=== PATIENT | male | born 1925 | race Caucasian/White ===

== ENCOUNTER 2016-10-01 10:59 | Emergency (ER) | payer MEDICARE, BC ==
[2016-10-01 11:15] VITALS: BP 143/72
--- NOTE | 2016-10-01 11:32 | ERNOTE ---
Time Seen by Provider: 10/01/16 11:18 Stated Complaint: BAD COUGH Presenting Symptoms:: cough Source: patient Exam Limitations: no limitations Immunizations: IMMUNIZATION HX Immunizations Up to Date Yes History of Influenza Vaccine Yes Hx Pneumococcal Vaccination Yes Allergies/Adverse Reactions: Allergies oxycodone HCl [From OxyContin] Allergy (Verified 10/01/16 11:16) Penicillins Allergy (Verified 10/01/16 11:16) "didn't work" zolpidem tartrate [From Ambien] Allergy (Verified 10/01/16 11:16) cilostazol Adverse Reaction (Verified 10/01/16 11:16) "heart rate when way fast." colchicine Adverse Reaction (Verified 10/01/16 11:16) celostogol Adverse Reaction (Uncoded 10/01/16 11:16) Home Medications: HOME MEDICATIONS Furosemide [Lasix] 20 mg PO DAILY 07/13/14 [Last Taken 07/20/14] Omeprazole [Prilosec] 40 mg PO DAILY 07/13/14 [Last Taken Unknown] Simvastatin [Zocor] 40 mg PO HS 07/13/14 [Last Taken 07/20/14] Fluticasone Propionate [Flovent Hfa] 1 inh IH BID 10/07/14 [Last Taken Unknown] Ipratropium [place] [Atrovent Hfa] 2 puff IH TID 10/07/14 [Last Taken Unknown] Acetaminophen [Tylenol] 650 mg PO QID PRN #0 tablet 01/18/15 [Last Taken Unknown ] Tamsulosin HCl [Flomax] 0.4 mg PO DAILY@1800 cap.sr.24h 01/18/15 [Last Taken Unknown] Potassium Chloride [Klor-Con 10] 20 meq PO DAILY 07/03/15 [Last Taken Unknown] Atenolol [Tenormin] 50 mg PO BID 07/04/15 [Last Taken Unknown] Theophylline Anhydrous [Gunner-24] 400 mg PO DAILY 07/04/15 [Last Taken Unknown] Doxycycline Hyclate [Vibratab] 100 mg PO BID #20 tablet 10/01/16 [Last Taken Unknown] predniSONE [Prednisone] 3 tab PO DAILY #12 tab 10/01/16 [Last Taken Unknown] - History of Present Ilness Narrative: Patient has had a cough for 2-3 days with yellow phlegm. He has a history of COPD, is on 2l O2 at night only, last exacerbation a year ago, shortness of breath minimally worse than baseline, chronic runny nose, no other new symptoms Severity: moderate Frequency/Possible Cause: Reports: occasional episodes Modifying Factors - Improves: Reports: rest Modifying Factors - Worsens: Reports: activity Associated Symptoms: Reports: cough. Denies: chest pain/soreness Prior Treatment: Denies: recently seen, currently on antibiotics Review of Systems - Review of Systems Constitutional: Absent: recent illness, fever, chills, malaise ENT: Present: nasal drainage. Absent: ear pain, sore throat Respiratory: Present: See HPI Cardiology: Absent: chest pain Gastrointestinal/Abdominal: Absent: nausea, vomiting, diarrhea, abdominal pain Genitourinary: Present: no symptoms reported Musculoskeletal: Absent: muscle pain Skin: Absent: rash Neurological: Absent: headache - Patient's Past Medical History Patient History - Medical: Arthritis, GERD, Hypothyroidism, UTI'S Patient History - Cardiac/Respiratory: Asthma, Bronchitis, COPD Patient History - Cancer: Bladder Patient History - Surgical Procedures: Colonoscopy, T & A, Other Patient History - Other: None - Family History Mother Family History - Medical: , Diabetes Type 2 Family History - Cardiac/Respiratory: Coronary Heart Disease, Myocardial Infarction Father Family History - Medical: Family History - Cardiac/Respiratory: CVA/Stroke - Social History Living Situations: other Abuse History: No History of abuse Psych History: No pertinent hx Does anyone smoke in the home?: No Smoking Status: Former smoker Have you smoked in the past 12 months: No Do you dip or chew tobacco: No Alcohol Use: occasionally Drug Use: none - Immunizations Immunizations Up to Date: Yes Hx Pneumococcal Vaccination: Yes History of Influenza Vaccine: Yes Physical Exam - Physical Exam General Appearance: Present: wd/wn, alert, no apparent distress Eye Exam: Normal inspection: bilateral, PERRL: bilateral Ears, Nose, Throat: Present: normal ENT inspection, normal pharynx Neck: Present: normal inspection. Absent: lymphadenopathy (R), lymphadenopathy (L) Respiratory: Present: no respiratory distress, decreased breath sounds, expiration (prolonged), wheezing - few, clear with cough Cardiovascular/Chest: Present: regular rate, rhythm, no murmur Neurological Exam: Present: alert, oriented, normal mood/affect Skin Exam: Present: normal color, warm/dry ED Progress - Results and Orders Patient's Lab Results:: I have reviewed the patient's lab results. - Vital Signs Patient's Vital Signs:: I have reviewed the patient's vital signs. Vital Signs: Vital Signs 10/01/16 11:02 Temperature 37.3 C Pulse Rate 100 Respiratory 17 Rate Blood Pressure 143/72 O2 Sat by Pulse 92 Oximetry - X-Ray X-Ray #1 X-Ray: chest - chronic changes, no acute Interpretation: Interp. by me - Progress/Reassessment Chief Complaint: Cough Progress Note-Subjective: 10/01/16 12:15 discussed results with patient, will treat for COPD exacerbation Departure - Departure Clinical Impression: Acute exacerbation of COPD with asthma Disposition: Home self-care Condition: Good Instructions: Chronic Obstructive Pulmonary Disease Exacerbation, [id number] Additional Instructions: use your nebulizers and oxygen as needed call your doctor for a follow up appointment Referrals: Champ Mcclure MD [Primary Care Provider] - Prescriptions: Doxycycline Hyclate [Vibratab] 100 mg PO BID #20 tablet predniSONE [Prednisone] 3 tab PO DAILY #12 tab
[2016-10-01 11:48] LABS: Hematocrit 54.2 % (42.0-52.0); Hemoglobin 17.5 gm/dL (13.5-18.0); Mean Cell Volume 91.4 fl (78-100); Mean Corpuscular Hemoglobin 29.5 pg (27-31); Mean Corpuscular Hgb Conc 32.3 g/dl (32-36); Mean Platelet Volume 10.1 fl (6.0-9.5); Neutrophil # 11.9 K/mm3 (1.3-6.0); Neutrophil % 76.9 % (42-75.0); Platelet Count 206 K/mm3 (150-450); Red Blood Count 5.93 M/mm3 (4.7-6.0); Red Cell Distribution Width 14.4 % (11.5-14.0); White Blood Count 15.5 K/mm3 (4.0-10.5)
[2016-10-01 12:02] LABS: Albumin * 3.8 gm/dl (3.4-5.0); Anion Gap 10.2 mmol/L (6.8-13.8); BUN/Creatinine Ratio 16.7 (9.0-21.6); Bilirubin, Total 1.1 mg/dL (0.0-1.1); Ca. Corrected For Albumin 9.5 mg/dL (8.4-10.2); Calcium * 9.7 mg/dL (7.9-10.9); Carbon Dioxide 33.8 mmol/L (24-32.6); Total Protein 7.7 gm/dL (6.2-8.2)
--- OUTSIDE RECORDS SUMMARY | 2016-10-01 12:07 | XMS REPORT | Continuity of Care Document ---
:1925 Author Organization [facility] ([facility]) Address [address] [place] [address] Phone [phone] Care Team Providers Name Role Phone Champ Cagle Primary Care Provider [phone] Source Comments This disclosure is being made pursuant to the Care Everywhere program, applicable federal and state laws, and may not contain all informaitonavailable regarding this patient.[facility] ([facility]) Active Allergies and Adverse Reactions Allergen Noted Date Severity Reactions Comments Cilostazol 03/28/2010 Unknown Current Medications Prescription Sig. Disp. Refills Start Date End Date Status fluticasone (FLOVENT Use 4 Puffs by Active HFA) 110 inhalation every 12 mcg/Actuation hours. inhaler furosemide (LASIX) Take 60 mg by mouth Active 20 mg tablet daily. omeprazole Take 20 mg by mouth Active (PRILOSEC) 20 mg daily. extended release capsule POTASSIUM CHLORIDE Take 10 mEq by mouth at Active (KLOR-CON 10 PO) bedtime. Theophylline 200 mg Take 400 mg by mouth Active Tab daily. simvastatin (ZOCOR) Take 40 mg by mouth Active 40 mg tablet every evening. Terazosin 10 mg Tab Take 1 Tab by mouth at 30 Tab 11 03/29/2010 Active bedtime. Indications: Benign Prostatic Hypertrophy, Hypertension atenolol (TENORMIN) Take 1 Tab by mouth 30 Tab 11 03/29/2010 Active 25 mg tablet daily. Indications: Supraventricular Arrhythmias Active Problems Not on file Social History Tobacco Use Types Packs/Day Years Used Date Former Smoker Comments:Patient quit smoking in 1999 Alcohol Use Drinks/Week oz/Week Comments No Last Filed Vital Signs Vital Sign Reading Time Taken Blood Pressure 124/58 03/29/2010 1:00 PM CDT Pulse 86 03/29/2010 1:00 PM CDT Temperature 36.3 C (97.3 F) 03/29/2010 1:00 PM CDT Respiratory Rate 18 03/29/2010 1:00 PM CDT Height 1.88 m (6' 2") 03/29/2010 12:46 AM CDT Weight 110.2 kg (242 lb 15.2 oz) 03/29/2010 12:46 AM CDT Body Mass Index 31.18 03/29/2010 12:46 AM CDT Oxygen Saturation 1% 03/29/2010 1:00 PM CDT Plan of Care Health Maintenance Due Date Last Done Comments Hepatitis B Vaccine (1 of 3 - Primary Series) 1925 Tdap Vaccine 1938 Td Vaccine 1945 Zoster Vaccine 1987 Pneumococcal Vaccine (1 of 2 - PCV13) 02/19/1992 Lipid Disorder Screening 03/29/2015 03/29/2010 Influenza Vaccine: Seasonal (#1) 02/14/2016 Results from Last 3 Months Not on file
[2016-10-01] MEDS ORDERED: predniSONE 20 MG TABLET PO ONE (12:13)
[2016-10-01] MEDS ORDERED: predniSONE 20 MG TABLET ONE (12:16)
== END 2016-10-01 12:21 | disposition home or self-care (01) ==
LOC: ER 10:59
DX: J44.1 Chronic obstructive pulmonary disease with (acute) exacerbation (principal); J45.909 Unspecified asthma, uncomplicated; K21.9 Gastro-esophageal reflux disease without esophagitis; M19.90 Unspecified osteoarthritis, unspecified site

== ENCOUNTER 2016-10-15 22:58 | Emergency (ER) | payer MEDICARE, BC ==
[2016-10-15] MEDS ORDERED: METHYLPREDNISOLONE SOD SUCC/PF 40 MG/ML VIAL IV ONE (23:26)
[2016-10-15] MEDS ORDERED: METHYLPREDNISOLONE SOD SUCC/PF 40 MG/ML VIAL ONE (23:27)
--- NOTE | 2016-10-15 23:36 | ERNOTE ---
Dyspnea - Date Date of Service: 10/15/16 - General Presenting Symptoms: shortness of breath Time Seen by Provider: 10/15/16 23:14 Source: patient, family - THREE SONS INCLUDING ONE THAT LIVES WITH HIM AND ONE THAT WENT TO THE PCP WITH HIM 2 DAYS AGO. Exam Limitations: no limitations - Immun/Allergies/Home Medications Immunizations: IMMUNIZATION HX Immunizations Up to Date Yes History of Influenza Vaccine Yes Hx Pneumococcal Vaccination Yes Allergies/Adverse Reactions: Allergies oxycodone HCl [From OxyContin] Allergy (Verified 10/01/16 11:16) Penicillins Allergy (Verified 10/01/16 11:16) "didn't work" zolpidem tartrate [From Ambien] Allergy (Verified 10/01/16 11:16) cilostazol Adverse Reaction (Verified 10/01/16 11:16) "heart rate when way fast." colchicine Adverse Reaction (Verified 10/01/16 11:16) celostogol Adverse Reaction (Uncoded 10/01/16 11:16) Home Medications: HOME MEDICATIONS Furosemide [Lasix] 20 mg PO DAILY 07/13/14 [Last Taken 07/20/14] Omeprazole [Prilosec] 20 mg PO BID 07/13/14 [Last Taken Unknown] Simvastatin [Zocor] 40 mg PO HS 07/13/14 [Last Taken 07/20/14] Fluticasone Propionate [Flovent Hfa] 1 inh IH BID 10/07/14 [Last Taken Unknown] Ipratropium [place] [Atrovent Hfa] 2 puff IH TID 10/07/14 [Last Taken Unknown] Acetaminophen [Tylenol] 650 mg PO QID PRN #0 tablet 01/18/15 [Last Taken Unknown ] Tamsulosin HCl [Flomax] 0.4 mg PO DAILY@1800 cap.sr.24h 01/18/15 [Last Taken Unknown] Potassium Chloride [Klor-Con 10] 20 meq PO DAILY 07/03/15 [Last Taken Unknown] Atenolol [Tenormin] 50 mg PO BID 07/04/15 [Last Taken Unknown] Theophylline Anhydrous [Gunner-24] 400 mg PO DAILY 07/04/15 [Last Taken Unknown] Olodaterol HCl [Striverdi Respimat] 1 puff IH BID 10/15/16 [Last Taken Unknown] Levofloxacin [Levaquin] 750 mg PO DAILY #10 tab 10/16/16 [Last Taken Unknown] predniSONE [Prednisone] 3 tab PO DAILY #9 tab 10/16/16 [Last Taken Unknown] - History of Present Illness Narrative: 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 NO HISTORY OF FEVER OR INCREASED COUGH OR KNOWN EXPOSURE. HE USUALLY USES NEBULIZER OF ALBUTEROL TWICED A DAY AND 2 L O2/NC ONLY AT NIGHT BUT SINCE THIS AFTERNOON TOOK EXTRA NEB TX'MENT AND AT 1700 STARTED WEARING HIS O2. ON THE WAY HERE BY EMS HE WAS GIVEN ANOTHER NEB TREATMENT WITH ALBUTEROL AND SAYS HE FEELS GOOD NOW. HIS LAST EXACERBATION WAS 2 WEEKS AGO AND HE HAS 3 DAYS OR STEROIDS AND WAS ON ANTIBIOTICS FOR 10 DAYS. WHEN IN THE OFFICE ON SUNDAY THEY SAID HIS LUNGS WERE CLEAR AND HE HAS NO MEDICATION ADJUSTMENTS. THE SON WHO LIVES WITH HIM SMOKES BUT NOT IN THE HOUSE. 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 Initiating event: Reports: unknown Frequency of episodes: Reports: frequent episodes Modifying Factors - (Improves): Reports: albuterol, oxygen Associated Symptoms-Dyspnea: Reports: other - HE C/O OF ABDOMINAL CRAMPS TRHIS AFTER NOON Prior Treatment: Reports: previous episodes Review of Systems - Review of Systems Constitutional: Present: See HPI EYE: Present: no symptoms reported ENT: Present: no symptoms reported Respiratory: Present: See HPI, shortness of breath Cardiology: Present: no symptoms reported Gastrointestinal/Abdominal: Present: abdominal pain - HE SAYS HE HAS HAD SOME C/ O OF ABDOMINAL FULLNESS AND DISCOMFORT TODAY . NO N & V OR DIARRHEA. NO KNOWN CONSTIPATION. Genitourinary: Present: no symptoms reported Musculoskeletal: Present: no symptoms reported Skin: Present: no symptoms reported Neurological: Present: no symptoms reported Endocrine: Present: no symptoms reported Hematologic/Lymphatic: Present: no symptoms reported Psych: Present: no symptoms reported All Other Systems: All systems neg except as marked - Patient's Past Medical History Patient History - Medical: Arthritis, GERD, Hypothyroidism, UTI'S Patient History - Cardiac/Respiratory: Asthma, Bronchitis, COPD Patient History - Cancer: Bladder Patient History - Surgical Procedures: Colonoscopy, T & A, Other Patient History - Other: None - Family History Mother Family History - Medical: , Diabetes Type 2 Family History - Cardiac/Respiratory: Coronary Heart Disease, Myocardial Infarction Father Family History - Medical: Family History - Cardiac/Respiratory: CVA/Stroke - Social History Living Situations: other Abuse History: No History of abuse Psych History: No pertinent hx Does anyone smoke in the home?: No Smoking Status: Former smoker Have you smoked in the past 12 months: No Alcohol Use: occasionally Drug Use: none - Immunizations Immunizations Up to Date: Yes Hx Pneumococcal Vaccination: Yes History of Influenza Vaccine: Yes Physical Exam - Physical Exam General Appearance: Present: wd/wn, alert, no apparent distress - STATES HE FEELS PDRETTY GOOD RIGHT NOW. Respiratory: Present: no respiratory distress, no accessory muscle use, chest nontender, rales - MILD BILATERAL BASILAR RALES , NO WHEEZES. Cardiovascular/Chest: Present: regular rate, rhythm, no murmur, normal peripheral pulses Peripheral Pulses: N=norm/S=strong/W=weak/B=bound/A=absent: Dorsalis-pedis (R): Normal, Dorsalis-pedis (L): Normal Gastrointestinal/Abdominal: Present: normal bowel sounds, nontender, soft, no organomegaly, distended - PT WITH LARGE OBESE BUT SOFT ABDOMEN. Back Exam: Present: no CVA tenderness, no vertebral tenderness Extremity Exam: Present: normal inspection, no edema Neurological Exam: Present: alert, oriented, normal mood/affect, no motor/ sensory deficits Skin Exam: Present: other - MOUTH IS DRY. ED Progress - Results and Orders Patient's Lab Results:: I have reviewed the patient's lab results. Results and Orders: ELEVATED WBC = 24K WITH LEFT SHIFT. SL. ELEVATED D DIMER, ELEVATED BNP, HYPOXEMIA ON ABG BUT WITH NORMAL PH. - Vital Signs Patient's Vital Signs:: I have reviewed the patient's vital signs. Vital Signs: Vital Signs 10/15/16 23:01 Temperature 37.5 C Pulse Rate 94 Respiratory 12 Rate Blood Pressure 125/56 O2 Sat by Pulse 94 Oximetry - EKG EKG: NSR, RBBB, unchanged from - 11/08/2015, other - SINUS WITH FIRST DEGREE AV BLOCK, SINUS ARRYTHMIA EKG read: Interp. by me - X-Ray X-Ray #1 X-Ray: chest - HYPERINFLATED. COPD NO CHANGE FROM SEPTEMBER CXR. Interpretation: Interp. by me - CT/Ultrasound CT/Ultrasound Narrative: CTA CHEST/ ARGUS = NO PE, RIGHT LOWER LOBE INFILTRATE IS NOT "EXCLUDED". SEE REPORT FOR FURTHER DETAILS. - Progress/Reassessment Chief Complaint: Dyspnea Progress:: Improved - HE REMAINS AFEBRILE AND COMFORTABLE IN THE ER. I DISCUSSED THE RESULTS WITH HIM AND ONE SON. HE DOES NOT WANT TO BE ADMITTED. WE DISCUSSED A PLAN FOR HOME CARE WITH FOLLOW UP WITH PCP Departure Clinical Impression: Acute exacerbation of chronic obstructive pulmonary disease - Departure Disposition: Home Follow Up Needed Condition: Fair Instructions: Chronic Obstructive Pulmonary Disease Exacerbation Additional Instructions: USE YOUR OXYGEN ALL THE TIME FOR THE NEXT TWO DAYS OR UNTIL YOUR DR ADVISES OTHER GARCIA. USE THE ALBUTEROL NEBULIZER EVERY 4 HOURS FOR THE NEXT TWO DAYS. TAKE LEVAQUIN AND PREDNISONE DIRECTED. YOU DO NOT HAVE TO TAKE THE NEXT DOSE UNTIL THIS EVENING. WATCH FOR FEVER OR INCREASED COUGH AND SHORTNESS OF BREATH AND RETURN TO THE ER IF WORSE. CALL YOUR DOCTOR, TELL THEM YOU WERE HERE AND MAKE ARRANGEMENTS FOR RECHECK IN THE NEXT 1-2 DAYS. Prescriptions: Levofloxacin [Levaquin] 750 mg PO DAILY #10 tab predniSONE [Prednisone] 3 tab PO DAILY #9 tab
[2016-10-15 23:42] LABS: Hematocrit 51.9 % (42.0-52.0); Hemoglobin 16.5 gm/dL (13.5-18.0); Mean Cell Volume 91.5 fl (78-100); Mean Corpuscular Hemoglobin 29.1 pg (27-31); Mean Corpuscular Hgb Conc 31.8 g/dl (32-36); Mean Platelet Volume 10.2 fl (6.0-9.5); Platelet Count 188 K/mm3 (150-450); Red Blood Count 5.67 M/mm3 (4.7-6.0); Red Cell Distribution Width 14.2 % (11.5-14.0); White Blood Count 24.2 K/mm3 (4.0-10.5)
[2016-10-15 23:53] LABS: Total Cells Counted 100
[2016-10-16 00:02] LABS: Albumin * 3.4 gm/dl (3.4-5.0); Anion Gap 6.1 mmol/L (6.8-13.8); Bilirubin, Total 1.1 mg/dL (0.0-1.1); Ca. Corrected For Albumin 9.5 mg/dL (8.4-10.2); Calcium * 9.3 mg/dL (7.9-10.9); Carbon Dioxide 36.4 mmol/L (24-32.6); Potassium 4.5 mmol/L (3.4-4.6); Total Protein 7.1 gm/dL (6.2-8.2)
[2016-10-16 00:04] LABS: Troponin I 0.02 ng/ml (0.00-0.10)
[2016-10-16 00:12] LABS: Band 5 % (0-2.0); Lymphocyte 6 % (20-51); Monocyte 5 % (0-9); Neutrophil 84 % (42-75); Neutrophil # 20.3 K/mm3 (1.3-6.0); Platelet Estimate Normal (NORMAL); RBC Morphology Normal (NORMAL)
--- OUTSIDE RECORDS SUMMARY | 2016-10-16 00:27 | XMS REPORT | Continuity of Care Document ---
:1925 Author Organization [facility] ([facility]) Address [address] [place] [address] Phone [phone] Care Team Providers Name Role Phone Champ Cagle Primary Care Provider [phone] Source Comments This disclosure is being made pursuant to the Care Everywhere program, applicable federal and state laws, and may not contain all informaitonavailable regarding this patient.[facility] ([facility]) Active Allergies and Adverse Reactions Allergen Noted [...]
[2016-10-16] MEDS ORDERED: LEVOFLOXACIN/D5W 750 MG/150 ML BAG IV SCH (01:00)
[2016-10-16 03:37] VITALS: BP 117/53
== END 2016-10-16 03:35 | disposition home or self-care (01) ==
LOC: ER 22:58
PROC: 4A033R1 Measurement of Arterial Saturation, Peripheral, Percutaneous Approach (ICD-10-PCS; principal; 2016-10-15)
DX: J44.1 Chronic obstructive pulmonary disease with (acute) exacerbation (principal); I45.10 Unspecified right bundle-branch block; I44.0 Atrioventricular block, first degree; Z87.891 Personal history of nicotine dependence; K21.9 Gastro-esophageal reflux disease without esophagitis

== ENCOUNTER 2016-11-10 09:42 | Inpatient (IN) | payer MEDICARE, BC ==
[2016-11-10] MEDS ORDERED: ALBUTEROL SULFATE/IPRATROPIUM 3 ML NEBU IH ONE ×2 (09:56→09:58)
[2016-11-10] MEDS ORDERED: METHYLPREDNISOLONE SOD SUCC/PF 40 MG/ML VIAL IV ONE (09:58)
[2016-11-10 10:23] LABS: Hematocrit 54.5 % (42.0-52.0); Hemoglobin 16.8 gm/dL (13.5-18.0); Mean Cell Volume 92.5 fl (78-100); Mean Corpuscular Hemoglobin 28.5 pg (27-31); Mean Corpuscular Hgb Conc 30.8 g/dl (32-36); Mean Platelet Volume 10.6 fl (6.0-9.5); Neutrophil # 6.3 K/mm3 (1.3-6.0); Neutrophil % 63.3 % (42-75.0); Platelet Count 207 K/mm3 (150-450); Red Blood Count 5.89 M/mm3 (4.7-6.0); Red Cell Distribution Width 13.7 % (11.5-14.0); White Blood Count 9.9 K/mm3 (4.0-10.5)
[2016-11-10] MEDS ORDERED: METHYLPREDNISOLONE SOD SUCC/PF 40 MG/ML VIAL ONE (10:31)
[2016-11-10 10:47] LABS: Albumin * 3.3 gm/dl (3.4-5.0); Anion Gap 8.8 mmol/L (6.8-13.8); Bilirubin, Total 1.2 mg/dL (0.0-1.1); Ca. Corrected For Albumin 9.7 mg/dL (8.4-10.2); Calcium * 9.5 mg/dL (7.9-10.9); Carbon Dioxide 34.4 mmol/L (24-32.6); Potassium 4.2 mmol/L (3.4-4.6); Total Protein 7.7 gm/dL (6.2-8.2)
[2016-11-10 10:48] LABS: Troponin I 0.077 ng/ml (0.00-0.10)
--- OUTSIDE RECORDS SUMMARY | 2016-11-10 11:18 | XMS REPORT | Continuity of Care Document ---
:1925 Author Organization [facility] ([facility]) Address [address] [place] [address] Phone [phone] Care Team Providers Name Role Phone Champ Cagle Primary Care Provider [phone] Source Comments This disclosure is being made pursuant to the Care Everywhere program, applicable federal and state laws, and may not contain all informaitonavailable regarding this patient.[facility] ([facility]) Active Allergies and Adverse Reactions [...]
[2016-11-10] MEDS ORDERED: FUROSEMIDE 10 MG/ML VIAL IV ONE (11:50)
[2016-11-10] MEDS ORDERED: FUROSEMIDE 10 MG/ML VIAL ONE (11:52)
--- OUTSIDE RECORDS SUMMARY | 2016-11-10 12:07 | XMS REPORT | Continuity of Care Document ---
:1925 Author Organization [facility] ([facility]) Address [address] [place] [address] Phone [phone] Care Team Providers Name Role Phone Champ Cagle Primary Care Provider [phone] Source Comments This disclosure is being made pursuant to the Care Everywhere program, applicable federal and state laws, and may not contain all informaitonavailable regarding this patient.[facility] ([facility]) Active Allergies and Adverse Reactions Allergen [...]
--- NOTE | 2016-11-10 12:08 | ERNOTE ---
Dyspnea - Date Date of Service: 11/10/16 - General Presenting Symptoms: shortness of breath Time Seen by Provider: 11/10/16 09:56 Source: patient Exam Limitations: no limitations - Immun/Allergies/Home Medications Immunizations: IMMUNIZATION HX Immunizations Up to Date Yes History of Influenza Vaccine Yes Hx Pneumococcal Vaccination Yes Allergies/Adverse Reactions: Allergies oxycodone HCl [From OxyContin] Allergy (Verified 11/10/16 10:41) Penicillins Allergy (Verified 11/10/16 10:41) "didn't work" zolpidem tartrate [From Ambien] Allergy (Verified 11/10/16 10:41) cilostazol Adverse Reaction (Verified 11/10/16 10:41) "heart rate when way fast." colchicine Adverse Reaction (Verified 11/10/16 10:41) celostogol Adverse Reaction (Uncoded 10/01/16 11:16) Home Medications: HOME MEDICATIONS Furosemide [Lasix] 20 mg PO DAILY 07/13/14 [Last Taken 07/20/14] Omeprazole [Prilosec] 20 mg PO BID 07/13/14 [Last Taken Unknown] Simvastatin [Zocor] 40 mg PO HS 07/13/14 [Last Taken 07/20/14] Fluticasone Propionate [Flovent Hfa] 1 inh IH BID 10/07/14 [Last Taken Unknown] Ipratropium [place] [Atrovent Hfa] 2 puff IH TID 10/07/14 [Last Taken Unknown] Acetaminophen [Tylenol] 650 mg PO QID PRN #0 tablet 01/18/15 [Last Taken Unknown ] Tamsulosin HCl [Flomax] 0.4 mg PO DAILY@1800 cap.sr.24h 01/18/15 [Last Taken Unknown] Potassium Chloride [Klor-Con 10] 20 meq PO DAILY 07/03/15 [Last Taken Unknown] Atenolol [Tenormin] 50 mg PO BID 07/04/15 [Last Taken Unknown] Theophylline Anhydrous [Gunner-24] 400 mg PO DAILY 07/04/15 [Last Taken Unknown] Olodaterol HCl [Striverdi Respimat] 1 puff IH BID 10/15/16 [Last Taken Unknown] - History of Present Illness Narrative: Patient presents to the ED with SOB. He relates that he has been getting more SOB for the last week. He was on his 2L home O2 and sating in the upper 70s on arrival. He denies CP. He has had some cough but no fever and his sputum has been clear. no hemoptysis or colored sputum. He denies pleuritic pain or acute onset of Sx. He relates it has been a couple of weeks since he has seen his doctor. No specific calf pain or leg swelling. Severity: moderate Initiating event: Reports: unknown Frequency of episodes: Reports: occassional episodes Modifying Factors - (Improves): Reports: nothing Modifying Factors (Worsens): Reports: activity Associated Symptoms-Dyspnea: Reports: cough. Denies: fever/chills, chest pain/ discomfort Prior Treatment: Denies: recently seen Review of Systems - Review of Systems Constitutional: Absent: fever ENT: Present: no symptoms reported Respiratory: Present: shortness of breath, cough Cardiology: Absent: chest pain Gastrointestinal/Abdominal: Absent: abdominal pain Genitourinary: Absent: dysuria Neurological: Absent: weakness All Other Systems: All systems neg except as marked - Patient's Past Medical History Patient History - Medical: Arthritis, GERD, Hypothyroidism, UTI'S Patient History - Cardiac/Respiratory: Asthma, Bronchitis, COPD Patient History - Cancer: Bladder Patient History - Surgical Procedures: Colonoscopy, T & A, Other Patient History - Other: None - Family History Mother Family History - Medical: , Diabetes Type 2 Family History - Cardiac/Respiratory: Coronary Heart Disease, Myocardial Infarction Father Family History - Medical: Family History - Cardiac/Respiratory: CVA/Stroke - Social History Living Situations: other Abuse History: No History of abuse Psych History: No pertinent hx Does anyone smoke in the home?: No Smoking Status: Never smoker Have you smoked in the past 12 months: No Do you dip or chew tobacco: No Alcohol Use: occasionally Drug Use: none - Immunizations Immunizations Up to Date: Yes Hx Pneumococcal Vaccination: Yes History of Influenza Vaccine: Yes Physical Exam - Physical Exam General Appearance: Present: alert, no apparent distress Eye Exam: Normal inspection: bilateral, PERRL: bilateral Ears, Nose, Throat: Present: normal ENT inspection Neck: Present: normal inspection Respiratory: Present: other - Faint wheezes in bases with faint rales in bases. Mild tachypnea. Cardiovascular/Chest: Present: regular rate, rhythm, normal peripheral pulses Gastrointestinal/Abdominal: Present: normal bowel sounds, nontender, nondistended, soft. Absent: tenderness Back Exam: Absent: CVA tenderness (R), CVA tenderness (L) Extremity Exam: Present: other - no calf tenderness Neurological Exam: Present: alert, normal mood/affect, other - no acute unilateral focal motor or sensory deficits. Skin Exam: Absent: skin rash ED Progress - Results and Orders Patient's Lab Results:: I have reviewed the patient's lab results. - Vital Signs Patient's Vital Signs:: I have reviewed the patient's vital signs. Vital Signs: Vital Signs 11/10/16 11/10/16 11/10/16 09:43 10:05 10:38 Temperature 36.8 C 37.9 C H Pulse Rate 89 88 88 Respiratory 18 22 H 18 Rate Blood Pressure 102/84 124/58 113/50 O2 Sat by Pulse 73 L 91 96 Oximetry 11/10/16 11/10/16 11/10/16 10:56 11:28 11:54 Temperature 37.5 C Pulse Rate 84 84 84 Respiratory 15 20 Rate Blood Pressure 113/50 137/61 121/56 O2 Sat by Pulse 93 88 L Oximetry - EKG EKG read: Interp. by me EKG Comments: NSR rate 96. RBBB. Non-specific ST/T wave changes, no clear evidence of STEMI. - X-Ray X-Ray #1 X-Ray: chest Interpretation: Interp. by me X-ray Comments: I reviewed images as well as CXR report from radiology - Progress/Reassessment Chief Complaint: Dyspnea Progress Note-Subjective: 11/10/16 12:07 Discussed with patient. He feels improved. Lungs sound improved. IV solumedrol, DuoNeb and lasix given. D/W Dr Cagle who will admit. Departure Clinical Impression: SOB (shortness of breath), CHF (congestive heart failure), COPD (chronic obstructive pulmonary disease) - Departure Disposition: [facility] Condition: Stable
[2016-11-10] MEDS ORDERED: ACETAMINOPHEN 325 MG TABLET PO PRN (12:32)
[2016-11-10] MEDS: IPRATROPIUM BROMIDE 0.5 MG/2.5 ML VIAL.NEB IH SCH ×2 (13:54→18:16)
[2016-11-10] MEDS ORDERED: FUROSEMIDE 10 MG/ML VIAL IV SCH (14:00)
[2016-11-10] MEDS: ENOXAPARIN SODIUM 40 MG/0.4 ML SYRG SC SCH (14:02)
--- NOTE | 2016-11-10 17:29 | HP ---
Chief Complaint - Chief Complaint Date of Service: 11/10/16 Time of Service: 17:15 Chief Complaint: Dyspnea History of Present Illness: This is an 89 y/o man with known diastolic dysfunction and COPD, who began to have more of a productive cough 4 days ago. His normally clear phlegm began to turn slightly yellow and he lost his appetite. He did not have a fever. He hasn't been eating this week, so he has been losing weight. His last echo was July 2014 and it showed diastolic dysfunction. 8 days ago he went out socially, and was around his great grandchildren, one of whom had a cold. This morning, he woke up feeling as if he couldn't breathe at all, and an albuterol nebulizer treatment helped only minimally. He therefore came to the [facility] ER, where is RA O2 sat was in the 70s. They gave him nebulizer treatments , IV steroids, O2 supplement at a higher rate, IV lasix and IV antibiotics. In the last couple of hours, he has begun to feel better. He has urinated briskly in response to the lasix. - Patient's Past Medical History Patient History - Medical: Arthritis, GERD, Hypothyroidism, Renal Disease, Renal Failure, UTI'S, Other - diastolic dysfunction Patient History - Cardiac/Respiratory: Asthma, Bronchitis, CHF, COPD, Hypertension, Hyperlipidemia, Pneumonia, Home O2 Use Patient History - Cancer: Bladder Patient History - Surgical Procedures: Colonoscopy, T & A, Other Patient History - Other: None - Family History Mother Family History - Medical: , Diabetes Type 2 Family History - Cardiac/Respiratory: Coronary Heart Disease, Myocardial Infarction Father Family History - Medical: Family History - Cardiac/Respiratory: CVA/Stroke - Social History Living Situations: other Abuse History: No History of abuse Psych History: No pertinent hx Does anyone smoke in the home?: No Smoking Status: Never smoker Have you smoked in the past 12 months: No Do you dip or chew tobacco: No Smoking Stop Date: 07/16/96 Patient requests Smoking Cessation Consult: No Initiate information on Smoking Cessation: No Alcohol Use: occasionally Drug Use: none - Immunizations Immunizations Up to Date: Yes Hx Pneumococcal Vaccination: Yes History of Influenza Vaccine: Yes Review Of Systems (GEN) - Review of Systems Generalized/Overall Review: Present: Malaise, Weight loss EENTM: Present: No Symptoms Reported Respiratory: Present: Cough, Shortness of Breath, Wheezing Cardiac: Present: No Symptoms Reported Abdominal: Present: Other - anorexia Genitourinary: Present: No Symptoms Reported Musculoskeletal: Present: No Symptoms Reported Neurological: Present: No Symptoms Reported Skin: Present: No Symptoms Reported Endocrine: Present: No Symptoms Reported Misc: All systems neg except as marked Immunizations: IMMUNIZATION HX Immunizations Up to Date Yes History of Influenza Vaccine Yes Hx Pneumococcal Vaccination Yes Allergies/Adverse Reactions: Allergies Allergy/AdvReac Type Severity Reaction Status Date / Time oxycodone HCl Allergy Severe Other Verified 11/10/16 12:57 [From OxyContin] Penicillins Allergy Unknown Other Verified 11/10/16 12:57 zolpidem tartrate Allergy Unknown Verified 11/10/16 12:57 [From Ambien] colchicine AdvReac Intermediate Other Verified 11/10/16 12:57 prednisone AdvReac Mild Other Verified 11/10/16 12:57 cilostazol AdvReac Verified 11/10/16 12:57 celostogol AdvReac Intermediate Other Uncoded 11/10/16 12:57 Home Medications: HOME MEDICATIONS Furosemide [Lasix] 20 mg PO DAILY 07/13/14 [Last Taken 07/20/14] Omeprazole [Prilosec] 20 mg PO DAILY 07/13/14 [Last Taken Unknown] Simvastatin [Zocor] 40 mg PO HS 07/13/14 [Last Taken 07/20/14] Fluticasone Propionate [Flovent Hfa] 1 inh IH BID 10/07/14 [Last Taken Unknown] Ipratropium [place] [Atrovent Hfa] 2 puff IH TID 10/07/14 [Last Taken Unknown] Acetaminophen [Tylenol] 650 mg PO QID PRN #0 tablet 01/18/15 [Last Taken Unknown ] Potassium Chloride [Klor-Con 10] 20 meq PO DAILY 07/03/15 [Last Taken Unknown] Atenolol [Tenormin] 50 mg PO BID 07/04/15 [Last Taken Unknown] Theophylline Anhydrous [Gunner-24] 400 mg PO DAILY 07/04/15 [Last Taken Unknown] Olodaterol HCl [Striverdi Respimat] 2 puff IH BID 10/15/16 [Last Taken Unknown] Acyclovir [Zovirax] 400 mg PO DAILY 11/10/16 [Last Taken Unknown] Albuterol Sulfate [Albuterol Sulfate 2.5 MG/3 ML] 2.5 mg IH Q4H PRN 11/10/16 [ Last Taken Unknown] Finasteride [Proscar] 5 mg PO DAILY 11/10/16 [Last Taken Unknown] Tamsulosin HCl [Flomax] 0.8 mg PO DAILY 11/10/16 [Last Taken Unknown] Exam - Exam Vital Signs: Vital Signs - Last Taken Selected Entries 11/10/16 11/10/16 11/10/16 09:43 10:05 10:38 Temperature 36.8 C Temperature Temporal Artery Source Scan Pulse Rate 89 Pulse Rhythm Regular Pulse Strength Normal Respiratory 18 Rate Respiratory Normal Depth Respiratory Short of Breath Effort Respiratory Normal Pattern Blood Pressure 102/84 Blood Pressure Sitting Position O2 Sat by Pulse 73 L 91 96 Oximetry Oxygen Delivery Nasal Cannula Nasal Cannula Nasal Cannula Method Oxygen Flow 2 4 4 Rate 11/10/16 11/10/16 11/10/16 10:40 10:56 11:28 Temperature Temperature Source Pulse Rate Pulse Rhythm Pulse Strength Respiratory Rate Respiratory Depth Respiratory Labored Effort Respiratory Pattern Blood Pressure Blood Pressure Position O2 Sat by Pulse 93 88 L Oximetry Oxygen Delivery Nasal Cannula Nasal Cannula Nasal Cannula Method Oxygen Flow 2 2 2 Rate 11/10/16 11/10/16 12:06 14:04 Temperature 36.7 C Temperature Oral Source Pulse Rate 87 91 Pulse Rhythm Pulse Strength Respiratory 22 H Rate Respiratory Depth Respiratory Effort Respiratory Pattern Blood Pressure 139/63 Blood Pressure Supine Position O2 Sat by Pulse 90 Oximetry Oxygen Delivery Nasal Cannula Nasal Cannula Method Oxygen Flow 3 3 Rate Constitutional: Present: Alert, Oriented x3, Cooperative, Well developed, Well nourished, No distress ENT Exam: Present: normal ENT inspection, hearing grossly normal, pharynx normal , TMs normal Eye Exam: bilateral eye: normal inspection, PERRL, EOMI Neck: Present: normal inspection Back Exam: Present: normal inspection Respiratory: Present: lungs clear, no respiratory distress Cardiovascular/Chest: Present: regular rate, rhythm, no edema Abdomen: Present: Normal bowel sounds, soft, nontender, nondistended, no rebound tenderness, no hepatospenomegaly, no masses Extremity: Present: normal range of motion, non-tender, normal inspection, no pedal edema, no calf tenderness Skin Exam: Present: normal color, warm/dry, no cyanosis Neurologic: Present: alert, oriented x 3 Appearance: Present: appropriate appearance, appropriate insight, neat, no memory impairment Eye contact: Present: cooperative, good eye contact, normal speech Thoughts: Present: normal thought pattern Diagnostic Studies: Laboratory Results WBC 9.9 K/mm3 (4.0-10.5) 11/10/16 10:15 RBC 5.89 M/mm3 (4.7-6.0) 11/10/16 10:15 Hgb 16.8 gm/dL (13.5-18.0) 11/10/16 10:15 Hct 54.5 % (42.0-52.0) H 11/10/16 10:15 MCV 92.5 fl (78-100) 11/10/16 10:15 MCH 28.5 pg (27-31) 11/10/16 10:15 MCHC 30.8 g/dl (32-36) L 11/10/16 10:15 RDW 13.7 % (11.5-14.0) 11/10/16 10:15 Plt Count 207 K/mm3 (150-450) 11/10/16 10:15 MPV 10.6 fl (6.0-9.5) H 11/10/16 10:15 Immature Gran % (Auto) 0.30 % (0.001-0.429) 11/10/16 10:15 Immature Gran # (Auto) 0.03 K/mm3 (0.000-0.0310) 11/10/16 10:15 Neutrophils % 63.3 % (42-75.0) 11/10/16 10:15 Lymphocytes % 20.3 % (20-51) 11/10/16 10:15 Monocytes % 14.9 % (0.0-9) H 11/10/16 10:15 Eosinophils % 0.7 % (0.0-3.0) 11/10/16 10:15 Basophils % 0.5 % (0.0-1.0) 11/10/16 10:15 Nucleated RBC % 0.0 k/mm3 (0-1) 11/10/16 10:15 Neutrophils # 6.3 K/mm3 (1.3-6.0) H 11/10/16 10:15 Lymphocytes # 2.0 k/mm3 (1.5-3.5) 11/10/16 10:15 Monocytes # 1.5 k/mm3 (0.0-1.0) H 11/10/16 10:15 Eosinophils # 0.1 k/mm3 (0.0-0.7) 11/10/16 10:15 Absolute Basophils 0.1 k/mm3 (0.0-0.1) 11/10/16 10:15 pCO2 50.5 mmHg (35.0-48.0) H 11/10/16 10:50 pO2 54.2 mmHg (83.0-108.0) L 11/10/16 10:50 HCO3 27.1 mmol/L (21.0-28.0) 11/10/16 10:50 Total CO2 28.7 mmol/L (19.0-24.0) H 11/10/16 10:50 Base Excess 0.6 mmol/L (-2.0-3.0) 11/10/16 10:50 ABG pH 7.35 (7.35-7.45) 11/10/16 10:50 ABG O2 Sat (Measured) 86.2 % (94.0-98.0) L 11/10/16 10:50 Sodium 142 mmol/L (132-142) 11/10/16 10:15 Plasma Sodium 143 mmol/L (130-142) H 11/10/16 10:15 Potassium 4.2 mmol/L (3.4-4.6) 11/10/16 10:15 Chloride 103 mmol/L (97-106) 11/10/16 10:15 Carbon Dioxide 34.4 mmol/L (24-32.6) H 11/10/16 10:15 Anion Gap 8.8 mmol/L (6.8-13.8) 11/10/16 10:15 BUN 18 mg/dL (6-23) 11/10/16 10:15 Creatinine 1.06 mg/dL (0.4-1.4) 11/10/16 10:15 Est GFR (Non-Af Amer) 70 mL/min (60-130) D 11/10/16 10:15 BUN/Creatinine Ratio 17.0 (9.0-21.6) 11/10/16 10:15 Random Glucose 152 mg/dL (70-110) H 11/10/16 10:15 Lactic Acid, Venous 1.6 mmol/L (0.4-1.9) 11/10/16 13:40 Calcium 9.5 mg/dL (7.9-10.9) 11/10/16 10:15 Calcium Adj for Albumin 9.7 mg/dL (8.4-10.2) 11/10/16 10:15 Total Bilirubin 1.2 mg/dL (0.0-1.1) H 11/10/16 10:15 AST 14 U/L (0-48) 11/10/16 10:15 ALT 16 U/L (19-67) L 11/10/16 10:15 Alkaline Phosphatase 104 U/L (50-170) 11/10/16 10:15 Troponin I 0.077 ng/ml (0.00-0.10) 11/10/16 10:15 B-Natriuretic Peptide 2035 pg/mL (5-650) H 11/10/16 10:15 Total Protein 7.7 gm/dL (6.2-8.2) 11/10/16 10:15 Albumin 3.3 gm/dl (3.4-5.0) L 11/10/16 10:15 Assessment/Plan - Narrative Narrative: Repeat lactic acid level. IV steroids. IV antibiotics. IV lasix. Monitor Labs. O2. Monitor weight. Nebulized medicication. Estimated stay of 72 hours. Repeat echo, check stability of heart function. - Assessment/Plan (1) Acute and chronic respiratory failure with hypoxia Problem: Acute (2) Acute asthma Problem: Acute (3) Acute exacerbation of COPD with asthma Problem: Acute (4) Bronchiectasis Problem: Chronic Qualifiers: Bronchiectasis type: uncomplicated Qualified Code(s): J47.9 - Bronchiectasis, uncomplicated (5) Diastolic CHF, chronic Problem: Acute (6) Goiter Problem: Chronic (7) Hypercholesteremia Problem: Chronic (8) Hyperlipidemia Problem: Chronic (9) Hypertension Problem: Chronic Qualifiers: Hypertension type: essential hypertension Qualified Code(s): I10 - Essential (primary) hypertension (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
[2016-11-10] MEDS: BUDESONIDE 0.5 MG/2 ML VIAL.NEB IH SCH (18:20)
[2016-11-10] MEDS: TAMSULOSIN HCL 0.4 MG CAP.SR.24H PO SCH (18:52)
[2016-11-10] MEDS: PANTOPRAZOLE SODIUM 20 MG TABLET.DR PO SCH (20:22)
[2016-11-10] MEDS: METHYLPREDNISOLONE SOD SUCC 30 MG in WATER FOR INJ.,BACTERIOSTATIC 0 ML IV SCH (20:22)
[2016-11-10] MEDS: ATENOLOL 50 MG TABLET PO SCH (20:22)
[2016-11-10] MEDS: OLODATEROL HCL IH SCH (20:22)
[2016-11-10] MEDS: SIMVASTATIN 40 MG TABLET PO SCH (20:22)
[2016-11-10] MEDS: FUROSEMIDE 10 MG/ML VIAL IV SCH (23:48)
[2016-11-11] MEDS: ALBUTEROL SULFATE 2.5 MG/3 ML VIAL.NEB IH PRN ×2 (00:45→13:39)
[2016-11-11 05:26] LABS: Hematocrit 48.8 % (42.0-52.0); Hemoglobin 15.4 gm/dL (13.5-18.0); Mean Cell Volume 91.4 fl (78-100); Mean Corpuscular Hemoglobin 28.8 pg (27-31); Mean Corpuscular Hgb Conc 31.6 g/dl (32-36); Mean Platelet Volume 10.7 fl (6.0-9.5); Neutrophil # 7.4 K/mm3 (1.3-6.0); Neutrophil % 81.4 % (42-75.0); Platelet Count 204 K/mm3 (150-450); Red Blood Count 5.34 M/mm3 (4.7-6.0); Red Cell Distribution Width 13.4 % (11.5-14.0); White Blood Count 9.1 K/mm3 (4.0-10.5)
[2016-11-11 05:36] LABS: Anion Gap 7.6 mmol/L (6.8-13.8); BUN/Creatinine Ratio 18.5 (9.0-21.6); Calcium * 9.3 mg/dL (7.9-10.9); Carbon Dioxide 36.1 mmol/L (24-32.6); Estimated Creat Clear 44.3; Potassium 4.7 mmol/L (3.4-4.6)
[2016-11-11] MEDS: BUDESONIDE 0.5 MG/2 ML VIAL.NEB IH SCH ×2 (06:05→18:24)
[2016-11-11] MEDS: IPRATROPIUM BROMIDE 0.5 MG/2.5 ML VIAL.NEB IH SCH ×3 (06:05→18:24)
[2016-11-11] MEDS: PANTOPRAZOLE SODIUM 20 MG TABLET.DR PO SCH ×2 (06:10→20:28)
[2016-11-11] MEDS ORDERED: TAMSULOSIN HCL 0.4 MG CAP.SR.24H PO SCH (09:00)
[2016-11-11] MEDS ORDERED: THEOPHYLLINE ANHYDROUS 400 MG PO SCH (09:00)
[2016-11-11] MEDS ORDERED: POTASSIUM CHLORIDE 20 MEQ TABLET.SA PO SCH (09:00)
[2016-11-11] MEDS: ACYCLOVIR 200 MG CAPSULE PO SCH (09:36)
[2016-11-11] MEDS: OLODATEROL HCL IH SCH ×3 (09:37→20:27)
[2016-11-11] MEDS: METHYLPREDNISOLONE SOD SUCC 30 MG in WATER FOR INJ.,BACTERIOSTATIC 0 ML IV SCH ×2 (09:37→20:27)
[2016-11-11] MEDS: FINASTERIDE 5 MG TABLET PO SCH (09:37)
[2016-11-11] MEDS: ATENOLOL 50 MG TABLET PO SCH ×2 (09:37→20:28)
[2016-11-11] MEDS: FUROSEMIDE 10 MG/ML VIAL IV SCH ×2 (12:55→23:21)
[2016-11-11] MEDS: ENOXAPARIN SODIUM 40 MG/0.4 ML SYRG SC SCH (12:56)
--- NOTE | 2016-11-11 13:21 | PN ---
Subjective - Date and Time Seen Date: 11/11/16 Time: 13:19 Subjective Narrative: Cough better, sob better, congestion better, now phlegm is clear. Objective - Review of Systems Generalized/Overall Review: Reports: Malaise EENTM: Reports: No Symptoms Reported Respiratory: Reports: Cough Cardiac: Reports: No Symptoms Reported Abdominal: Reports: No Symptoms Reported Genitourinary Symptoms: Reports: No Symptoms Reported Musculoskeletal Complaints: Reports: No Symptoms Reported Neurological: Reports: No Symptoms Reported Skin: Reports: No Symptoms Reported Endocrine: Reports: No Symptoms Reported Misc: All systems neg except as marked - Vitals Vitals: Last Vital Signs Selected Entries 11/11/16 11:23 Temperature 36.8 C Temperature Oral Source Pulse Rate 82 Respiratory 20 Rate Respiratory Normal Depth Blood Pressure 126/64 Blood Pressure Sitting Position O2 Sat by Pulse 94 Oximetry Oxygen Delivery Nasal Cannula Method Oxygen Flow 3 Rate - Abnormal Lab Findings Abnormal Lab Findings: Abnormal Lab Results 11/11/16 11/11/16 Range/Units 05:05 05:05 MCHC 31.6 L (32-36) g/dl MPV 10.7 H (6.0-9.5) fl Immature Gran # (Auto) 0.04 H (0.000-0.0310) K/mm3 Neutrophils % 81.4 H (42-75.0) % Lymphocytes % 12.9 L (20-51) % Neutrophils # 7.4 H (1.3-6.0) K/mm3 Lymphocytes # 1.2 L (1.5-3.5) k/mm3 Potassium 4.7 H (3.4-4.6) mmol/L Carbon Dioxide 36.1 H (24-32.6) mmol/L Est GFR (Non-Af Amer) 58 L (60-130) mL/min Random Glucose 146 H (70-110) mg/dL - Exam Constitutional: Present: Alert, Oriented x3, Cooperative, Well developed, Well nourished, No distress ENT Exam: Present: normal ENT inspection, hard of hearing Neck: Present: normal inspection Respiratory: Present: normal breath sounds, no respiratory distress Cardiovascular/Chest: Present: regular rate, rhythm, no murmur Abdomen: Present: Normal bowel sounds, soft, nontender, nondistended, no rebound tenderness, no hepatospenomegaly, no masses Extremity: Present: normal inspection, no pedal edema Skin Exam: Present: normal color, warm/dry, no cyanosis Neurologic: Present: alert, oriented x 3 Appearance: Present: appropriate appearance, appropriate insight, neat, no memory impairment Eye contact: Present: cooperative, good eye contact, normal speech Thoughts: Present: normal thought pattern Assessment/Plan Plan Narrative: Walk more. Continue IV antibiotics, IV Lasix, IV steroids. Continue breathing treatments. Follow labs. - Problems/Diagnosis (1) Acute and chronic respiratory failure with hypoxia Problem: Acute (2) Acute asthma Problem: Acute (3) Acute exacerbation of COPD with asthma Problem: Acute (4) Bronchiectasis Problem: Chronic Qualifiers: Bronchiectasis type: uncomplicated Qualified Code(s): J47.9 - Bronchiectasis, uncomplicated (5) Diastolic CHF, chronic Problem: Acute (6) Goiter Problem: Chronic (7) Hypercholesteremia Problem: Chronic (8) Hyperlipidemia Problem: Chronic (9) Hypertension Problem: Chronic Qualifiers: Hypertension type: essential hypertension Qualified Code(s): I10 - Essential (primary) hypertension (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
[2016-11-11] MEDS: TAMSULOSIN HCL 0.4 MG CAP.SR.24H PO SCH (17:04)
[2016-11-11] MEDS: NYSTATIN 30 APPL TUBE TP SCH (20:27)
[2016-11-11] MEDS: SIMVASTATIN 40 MG TABLET PO SCH (20:28)
[2016-11-11] MEDS: THEOPHYLLINE ANHYDROUS 200 MG PO SCH (20:28)
[2016-11-12] MEDS: IPRATROPIUM BROMIDE 0.5 MG/2.5 ML VIAL.NEB IH SCH ×3 (05:55→19:49)
[2016-11-12] MEDS: BUDESONIDE 0.5 MG/2 ML VIAL.NEB IH SCH ×2 (05:55→19:47)
[2016-11-12 06:26] LABS: Anion Gap 6.6 mmol/L (6.8-13.8); BUN/Creatinine Ratio 27.3 (9.0-21.6); Calcium * 9.4 mg/dL (7.9-10.9); Carbon Dioxide 39.9 mmol/L (24-32.6); Potassium 4.5 mmol/L (3.4-4.6)
[2016-11-12] MEDS: PANTOPRAZOLE SODIUM 20 MG TABLET.DR PO SCH ×2 (07:15→20:10)
[2016-11-12] MEDS: METHYLPREDNISOLONE SOD SUCC 30 MG in WATER FOR INJ.,BACTERIOSTATIC 0 ML IV SCH ×2 (09:52→20:10)
[2016-11-12] MEDS: OLODATEROL HCL IH SCH ×2 (09:53→20:10)
[2016-11-12] MEDS: ACYCLOVIR 200 MG CAPSULE PO SCH (09:53)
[2016-11-12] MEDS: ATENOLOL 50 MG TABLET PO SCH ×2 (09:53→20:11)
[2016-11-12] MEDS: FINASTERIDE 5 MG TABLET PO SCH (09:53)
[2016-11-12] MEDS: POTASSIUM CHLORIDE 10 MEQ TABLET.SA PO SCH (09:53)
[2016-11-12] MEDS: NYSTATIN 30 APPL TUBE TP SCH ×2 (09:53→20:09)
[2016-11-12] MEDS ORDERED: MAGNESIUM HYDROXIDE 30 ML UDC PO STA (11:32)
[2016-11-12] MEDS: FUROSEMIDE 10 MG/ML VIAL IV SCH ×2 (11:38→22:53)
[2016-11-12] MEDS: ENOXAPARIN SODIUM 40 MG/0.4 ML SYRG SC SCH (11:47)
[2016-11-12] MEDS: ALBUTEROL SULFATE 2.5 MG/3 ML VIAL.NEB IH PRN (12:43)
--- NOTE | 2016-11-12 13:07 | PN ---
Subjective - Date and Time Seen Date: 11/12/16 Time: 13:04 Subjective Narrative: Cough better, sob better, congestion better, phlegm remains clear, a little constipated. Objective - Review of Systems Generalized/Overall Review: Reports: No Symptoms Reported EENTM: Reports: No Symptoms Reported Respiratory: Reports: Cough Cardiac: Reports: No Symptoms Reported Abdominal: Reports: Constipation Genitourinary Symptoms: Reports: No Symptoms Reported Musculoskeletal Complaints: Reports: No Symptoms Reported Neurological: Reports: No Symptoms Reported Skin: Reports: No Symptoms Reported Endocrine: Reports: No Symptoms Reported Misc: All systems neg except as marked - Vitals Vitals: Last Vital Signs Selected Entries 11/12/16 11:11 Temperature 36.7 C Temperature Oral Source Pulse Rate 82 Respiratory 20 Rate Blood Pressure 134/62 Blood Pressure Supine Position O2 Sat by Pulse 92 Oximetry Oxygen Delivery Room Air Method Oxygen Flow 0 Rate - Abnormal Lab Findings Abnormal Lab Findings: Abnormal Lab Results 11/12/16 Range/Units 05:00 Carbon Dioxide 39.9 H (24-32.6) mmol/L Anion Gap 6.6 L (6.8-13.8) mmol/L BUN 30 H (6-23) mg/dL BUN/Creatinine Ratio 27.3 H (9.0-21.6) Random Glucose 136 H (70-110) mg/dL - Exam Constitutional: Present: Alert, Oriented x3, Cooperative, Well developed, Well nourished, No distress ENT Exam: Present: normal ENT inspection, hard of hearing Neck: Present: normal inspection Respiratory: Present: normal breath sounds, no respiratory distress Cardiovascular/Chest: Present: regular rate, rhythm, no murmur Abdomen: Present: Normal bowel sounds, soft, nontender, nondistended, no rebound tenderness, no hepatospenomegaly, no masses Extremity: Present: normal inspection, no pedal edema Skin Exam: Present: normal color, warm/dry, no cyanosis Neurologic: Present: alert, oriented x 3 Appearance: Present: appropriate appearance, appropriate insight, neat Eye contact: Present: cooperative, good eye contact, normal speech Thoughts: Present: normal thought pattern Assessment/Plan Plan Narrative: Milk of magnesia today. IV antibiotics, IV Lasix, IV steroids, nebulized medications. Probably home tomorrow. - Problems/Diagnosis (1) Acute and chronic respiratory failure with hypoxia Problem: Acute (2) Acute asthma Problem: Acute (3) Acute exacerbation of COPD with asthma Problem: Acute (4) Bronchiectasis Problem: Chronic Qualifiers: Bronchiectasis type: uncomplicated Qualified Code(s): J47.9 - Bronchiectasis, uncomplicated (5) Diastolic CHF, chronic Problem: Acute (6) Goiter Problem: Chronic (7) Hypercholesteremia Problem: Chronic (8) Hyperlipidemia Problem: Chronic (9) Hypertension Problem: Chronic Qualifiers: Hypertension type: essential hypertension Qualified Code(s): I10 - Essential (primary) hypertension (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
[2016-11-12] MEDS: TAMSULOSIN HCL 0.4 MG CAP.SR.24H PO SCH (18:13)
[2016-11-12] MEDS: THEOPHYLLINE ANHYDROUS 200 MG PO SCH (20:10)
[2016-11-12] MEDS: SIMVASTATIN 40 MG TABLET PO SCH (20:11)
[2016-11-13] MEDS: IPRATROPIUM BROMIDE 0.5 MG/2.5 ML VIAL.NEB IH SCH (06:06)
[2016-11-13] MEDS: BUDESONIDE 0.5 MG/2 ML VIAL.NEB IH SCH (06:06)
[2016-11-13] MEDS: PANTOPRAZOLE SODIUM 20 MG TABLET.DR PO SCH (06:16)
[2016-11-13 07:02] VITALS: BP 115/70
--- NOTE | 2016-11-13 08:01 | DS ---
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 Now seems almost back to baseline. 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 Constipation relieved yesterday with MOM. Asked about eventually living at the [facility] in [place]. Procedures Performed: none Discharge Disposition: Home self care Disposition: Home self-care Condition: Stable Discharge Activity: Activity as tolerated Discharge Diet: Low salt Problem Oriented Discharge Instructions to Patient/Family: Chronic Obstructive Pulmonary Disease Exacerbation, [id number], CHF Patient Instructions, Heart Failure, [id number] Additional Patient Instructions (free text): O2 continuous 2 Liters per minute nasal canula Followup with Dr. Cagle 1 week. Prescriptions (Any new or edited meds): Cefuroxime Axetil [Cefuroxime] 500 mg PO BID #20 tablet Nystatin [Mycostatin Cream] 1 appl TP BID #1 tube predniSONE [Prednisone] 3 tab PO BID #60 tab Complete Home Medications List: Complete Home Medication List: Furosemide [Lasix] 20 mg PO DAILY 07/13/14 Omeprazole [Prilosec] 20 mg PO DAILY 07/13/14 Simvastatin [Zocor] 40 mg PO HS 07/13/14 Fluticasone Propionate [Flovent Hfa] 1 inh IH BID 10/07/14 Ipratropium [place] [Atrovent Hfa] 2 puff IH TID 10/07/14 Acetaminophen [Tylenol] 650 mg PO QID PRN #0 tablet 01/18/15 Potassium Chloride [Klor-Con 10] 20 meq PO DAILY 07/03/15 Atenolol [Tenormin] 50 mg PO BID 07/04/15 Theophylline Anhydrous [Gunner-24] 400 mg PO DAILY 07/04/15 Olodaterol HCl [Striverdi Respimat] 2 puff IH BID 10/15/16 Acyclovir [Zovirax] 400 mg PO DAILY 11/10/16 Albuterol Sulfate [Albuterol Sulfate 2.5 MG/3 ML] 2.5 mg IH Q4H PRN 11/10/16 Finasteride [Proscar] 5 mg PO DAILY 11/10/16 Tamsulosin HCl [Flomax] 0.8 mg PO DAILY 11/10/16 Cefuroxime Axetil [Cefuroxime] 500 mg PO BID #20 tablet 11/13/16 Nystatin [Mycostatin Cream] 1 appl TP BID #1 tube 11/13/16 predniSONE [Prednisone] 3 tab PO BID #60 tab 11/13/16
[2016-11-13] MEDS: METHYLPREDNISOLONE SOD SUCC 30 MG in WATER FOR INJ.,BACTERIOSTATIC 0 ML IV SCH (09:23)
[2016-11-13] MEDS: ACYCLOVIR 200 MG CAPSULE PO SCH (09:23)
[2016-11-13] MEDS: FINASTERIDE 5 MG TABLET PO SCH (09:23)
[2016-11-13] MEDS: ATENOLOL 50 MG TABLET PO SCH (09:24)
[2016-11-13] MEDS: POTASSIUM CHLORIDE 10 MEQ TABLET.SA PO SCH (09:24)
[2016-11-13] MEDS: NYSTATIN 30 APPL TUBE TP SCH (09:24)
[2016-11-13] MEDS: OLODATEROL HCL IH SCH (09:24)
== END 2016-11-13 11:35 | disposition home or self-care (01) | DRG 189 ==
LOC: ER 09:42 → MS 12:02
PROVIDERS: ADMIT Allergy & Immunology; ATTEND Allergy & Immunology
PROC: 4A033R1 Measurement of Arterial Saturation, Peripheral, Percutaneous Approach (ICD-10-PCS; principal; 2016-11-10)
DX: J96.21 Acute and chronic respiratory failure with hypoxia (principal); J44.1 Chronic obstructive pulmonary disease with (acute) exacerbation; J45.901 Unspecified asthma with (acute) exacerbation; I50.32 Chronic diastolic (congestive) heart failure; E87.2 Acidosis; I10 Essential (primary) hypertension; E78.5 Hyperlipidemia, unspecified; Z99.81 Dependence on supplemental oxygen

== ENCOUNTER 2016-12-08 08:27 | Inpatient (IN) | payer MEDICARE, BC ==
[2016-12-08 09:07] LABS: Hematocrit 55.8 % (42.0-52.0); Hemoglobin 17.5 gm/dL (13.5-18.0); Mean Cell Volume 92.4 fl (78-100); Mean Corpuscular Hgb Conc 31.4 g/dl (32-36); Mean Platelet Volume 10.5 fl (6.0-9.5); Neutrophil # 10.7 K/mm3 (1.3-6.0); Platelet Count 168 K/mm3 (150-450); Red Blood Count 6.04 M/mm3 (4.7-6.0); Red Cell Distribution Width 13.6 % (11.5-14.0); White Blood Count 13.4 K/mm3 (4.0-10.5)
[2016-12-08 09:26] LABS: Troponin I Less than 0.017 ng/ml (0.00-0.10)
[2016-12-08 09:28] LABS: ALT 20 U/L (19-67); AST 19 U/L (0-48); Albumin * 3.5 gm/dl (3.4-5.0); Alkaline Phosphatase * 117 U/L (50-170); Anion Gap 9.5 mmol/L (6.8-13.8); BNP * 627 pg/mL (5-650); BUN/Creatinine Ratio 18.1 (9.0-21.6); Bilirubin, Total 0.8 mg/dL (0.0-1.1); Blood Urea Nitrogen 19 mg/dL (6-23); Calcium * 9.9 mg/dL (7.9-10.9); Carbon Dioxide 32.7 mmol/L (24-32.6); Chloride 102 mmol/L (97-106); Glucose * 108 mg/dL (70-110); Potassium 4.2 mmol/L (3.4-4.6); Sodium 140 mmol/L (132-142); Total Protein 7.4 gm/dL (6.2-8.2)
[2016-12-08] MEDS ORDERED: ALBUTEROL SULFATE/IPRATROPIUM 3 ML NEBU IH ONE ×2 (09:35→09:39)
--- NOTE | 2016-12-08 09:37 | ERNOTE ---
Dyspnea - Date Date of Service: 12/08/16 - General Presenting Symptoms: shortness of breath Source: patient, family, old records Exam Limitations: no limitations - Immun/Allergies/Home Medications Immunizations: IMMUNIZATION HX Immunizations Up to Date Yes History of Influenza Vaccine Yes Hx Pneumococcal Vaccination Yes Allergies/Adverse Reactions: Allergies oxycodone HCl [From OxyContin] Allergy (Severe, Verified 12/08/16 08:44) Other Renal failure Penicillins Allergy (Unknown, Verified 12/08/16 08:44) Other "didn't work" zolpidem tartrate [From Ambien] Allergy (Unknown, Verified 12/08/16 08:44) colchicine Adverse Reaction (Intermediate, Verified 12/08/16 08:44) Other Tachycardia, renal impairement prednisone Adverse Reaction (Mild, Verified 12/08/16 08:44) Other Hyperactivity cilostazol Adverse Reaction (Verified 12/08/16 08:44) "heart rate when way fast." celostogol Adverse Reaction (Intermediate, Uncoded 12/08/16 08:44) Other AMS, Tachycardia, Edema Home Medications: HOME MEDICATIONS Furosemide [Lasix] 20 mg PO DAILY 07/13/14 [Last Taken 07/20/14] Omeprazole [Prilosec] 20 mg PO DAILY 07/13/14 [Last Taken Unknown] Simvastatin [Zocor] 40 mg PO HS 07/13/14 [Last Taken 07/20/14] Fluticasone Propionate [Flovent Hfa] 1 inh IH BID 10/07/14 [Last Taken Unknown] Ipratropium [place] [Atrovent Hfa] 2 puff IH TID 10/07/14 [Last Taken Unknown] Acetaminophen [Tylenol] 650 mg PO QID PRN #0 tablet 01/18/15 [Last Taken Unknown ] Potassium Chloride [Klor-Con 10] 20 meq PO DAILY 07/03/15 [Last Taken Unknown] Atenolol [Tenormin] 50 mg PO BID 07/04/15 [Last Taken Unknown] Theophylline Anhydrous [Gunner-24] 400 mg PO DAILY 07/04/15 [Last Taken Unknown] Olodaterol HCl [Striverdi Respimat] 2 puff IH BID 10/15/16 [Last Taken Unknown] Albuterol Sulfate [Albuterol Sulfate 2.5 MG/3 ML] 2.5 mg IH Q4H PRN 11/10/16 [ Last Taken Unknown] Finasteride [Proscar] 5 mg PO DAILY 11/10/16 [Last Taken Unknown] Tamsulosin HCl [Flomax] 0.8 mg PO DAILY 11/10/16 [Last Taken Unknown] Levofloxacin [Levaquin] 500 mg PO DAILY #10 tab 12/08/16 [Last Taken Unknown] Naproxen Sodium [Aleve] 220 mg PO BID 12/08/16 [Last Taken Unknown] predniSONE [Prednisone] 3 tab PO BID #36 tab 12/08/16 [Last Taken Unknown] - History of Present Illness Narrative: Released from hospital 2 weeks ago. Woke up this am more short of breath. Coughing with small amount of sputum production. No chest pain. No syncope. Nebulizer did not help. Severity: moderate Treatment [employer]: by patient, oxygen - has home O2 at 3L overnight Initiating event: Reports: unknown Frequency of episodes: Reports: frequent episodes Modifying Factors - (Improves): Reports: oxygen, rest Modifying Factors (Worsens): Reports: activity Associated Symptoms-Dyspnea: Reports: cough, wheezing. Denies: fever/chills, sweating, chest pain/discomfort Prior Treatment: Reports: recently hospitalized Review of Systems - Review of Systems Constitutional: Present: weakness, fatigue. Absent: fever, chills EYE: Present: no symptoms reported ENT: Present: no symptoms reported Respiratory: Present: shortness of breath, cough Gastrointestinal/Abdominal: Present: no symptoms reported Genitourinary: Present: no symptoms reported - Patient's Past Medical History Patient History - Medical: Arthritis, GERD, Hypothyroidism, Renal Disease, Renal Failure, UTI'S, Other Patient History - Cardiac/Respiratory: Asthma, Bronchitis, CHF, COPD, Hypertension, Hyperlipidemia, Pneumonia, Home O2 Use Patient History - Cancer: Bladder Patient History - Surgical Procedures: Colonoscopy, T & A, Other Patient History - Other: None - Family History Mother Family History - Medical: , Diabetes Type 2 Family History - Cardiac/Respiratory: Coronary Heart Disease, Myocardial Infarction Father Family History - Medical: Family History - Cardiac/Respiratory: CVA/Stroke - Social History Living Situations: home Abuse History: No History of abuse Psych History: No pertinent hx Does anyone smoke in the home?: No Smoking Status: Former smoker Alcohol Use: occasionally Drug Use: none - Immunizations Immunizations Up to Date: Yes Hx Pneumococcal Vaccination: Yes History of Influenza Vaccine: Yes Physical Exam - Physical Exam General Appearance: Present: wd/wn, moderate distress Eye Exam: Normal inspection: bilateral, PERRL: bilateral Ears, Nose, Throat: Present: normal pharynx Neck: Present: nontender, limited range of motion Respiratory: Present: respiratory distress, accessory muscle use, decreased breath sounds, wheezing - generalized Cardiovascular/Chest: Present: regular rate, rhythm Gastrointestinal/Abdominal: Present: normal bowel sounds, nontender Back Exam: Present: decreased range of motion Neurological Exam: Present: alert, oriented Skin Exam: Present: normal color, warm/dry ED Progress - Results and Orders Patient's Lab Results:: I have reviewed the patient's lab results. - Vital Signs Patient's Vital Signs:: I have reviewed the patient's vital signs. Vital Signs: Vital Signs 12/08/16 12/08/16 08:39 09:02 Temperature 36.2 C L Pulse Rate 85 85 Respiratory 23 H 22 H Rate Blood Pressure 149/61 141/63 O2 Sat by Pulse 84 L 95 Oximetry - EKG EKG: NSR, RBBB, other - LAFB, ? LAE, 1st degree AVB - X-Ray X-Ray #1 X-Ray: chest Interpretation: Reviewed by me - no acute pneumonia or CHF - Progress/Reassessment Chief Complaint: Dyspnea Progress:: Unchanged - after mucomyst Plan - Plan Plan: Unfortunately Mr. Díaz desaturated significantly standing and is not stable enough for discharge home. He does not have pneumonia or significant CHF. He has responded to steroids in the past so he will be admitted for treatment with IV steroids and antibiotics. I spoke with Dr. Andrade he will be admitted acute. Departure Clinical Impression: Acute exacerbation of COPD with asthma - Departure Disposition: [facility] Condition: Stable Instructions: Chronic Obstructive Pulmonary Disease Exacerbation, [id number] Referrals: Champ Mcclure MD [Primary Care Provider] - Prescriptions: Levofloxacin [Levaquin] 500 mg PO DAILY #10 tab predniSONE [Prednisone] 3 tab PO BID #36 tab
[2016-12-08] MEDS ORDERED: ACETYLCYSTEINE 200 MG/ML VIAL IH ONE (10:53)
[2016-12-08] MEDS ORDERED: ACETYLCYSTEINE 200 MG/ML VIAL ONE (11:04)
[2016-12-08] MEDS ORDERED: METHYLPREDNISOLONE SOD SUCC/PF 40 MG/ML VIAL IV ONE (11:51)
[2016-12-08] MEDS ORDERED: METHYLPREDNISOLONE SOD SUCC/PF 40 MG/ML VIAL ONE (12:41)
[2016-12-08] MEDS: LEVOFLOXACIN/D5W 500 MG/100 ML BAG IV SCH (13:07)
--- OUTSIDE RECORDS SUMMARY | 2016-12-08 13:14 | XMS REPORT | Continuity of Care Document ---
:1925 Author Organization [facility] ([facility]) Address [address] [place] [address] Phone [phone] Care Team Providers Name Role Phone Champ Cagle Primary Care Provider [phone] Source Comments This disclosure is being made pursuant to the Care Everywhere program, applicable federal and state laws, and may not contain all informaitonavailable regarding this patient.[facility] ([facility]) Active Allergies and Adverse Reactions Allergen [...]
--- NOTE | 2016-12-08 18:08 | HP ---
Chief Complaint - Chief Complaint Date of Service: 12/08/16 Time of Service: 19:41 Chief Complaint: Short of Breath History of Present Illness: Released from hospital 2 weeks ago. Woke up this am more short of breath. Coughing with small amount of sputum production. No chest pain. No syncope. Nebulizer did not help. Exposed to two people coughing all over him yesterday noon at a bar. No fever today at home, but febrile in the hospital. Feels a little better now. Had a dose of Levaquin 500 mg in ER and solumedrol 80 mg IV in ER. WBC slightly high in ER. O2 sat 84 % in ER on 2Liters when arrive in ER. Uses O2 when sleeping at home. - Patient's Past Medical History Patient History - Medical: Arthritis, GERD Patient History - Cardiac/Respiratory: Asthma, Bronchitis, CHF, COPD, Hypertension, Hyperlipidemia, Pneumonia, Home O2 Use Patient History - Cancer: Bladder Patient History - Surgical Procedures: Colonoscopy, T & A, Other Patient History - Other: None - Family History Mother Family History - Medical: , Diabetes Type 2 Family History - Cardiac/Respiratory: Coronary Heart Disease, Myocardial Infarction Father Family History - Medical: Family History - Cardiac/Respiratory: CVA/Stroke - Social History Living Situations: home Abuse History: No History of abuse Psych History: No pertinent hx Does anyone smoke in the home?: No Smoking Status: Former smoker Have you smoked in the past 12 months: No Alcohol Use: occasionally Drug Use: none - Immunizations Immunizations Up to Date: Yes Hx Pneumococcal Vaccination: Yes History of Influenza Vaccine: Yes Review Of Systems (GEN) - Review of Systems Generalized/Overall Review: Present: Malaise EENTM: Present: Nose Congestion Respiratory: Present: Cough, Shortness of Breath, Wheezing Cardiac: Present: No Symptoms Reported Abdominal: Present: No Symptoms Reported Genitourinary: Present: No Symptoms Reported Musculoskeletal: Present: No Symptoms Reported Neurological: Present: No Symptoms Reported Skin: Present: No Symptoms Reported Endocrine: Present: No Symptoms Reported Misc: All systems neg except as marked Allergies/Adverse Reactions: Allergies Allergy/AdvReac Type Severity Reaction Status Date / Time oxycodone HCl Allergy Severe Other Verified 12/08/16 08:44 [From OxyContin] Penicillins Allergy Unknown Other Verified 12/08/16 08:44 zolpidem tartrate Allergy Unknown Verified 12/08/16 08:44 [From Ambien] colchicine AdvReac Intermediate Other Verified 12/08/16 08:44 cilostazol AdvReac Verified 12/08/16 08:44 celostogol AdvReac Intermediate Other Uncoded 12/08/16 08:44 Home Medications: HOME MEDICATIONS Furosemide [Lasix] 20 mg PO DAILY 07/13/14 [Last Taken 07/20/14] Omeprazole [Prilosec] 20 mg PO DAILY 07/13/14 [Last Taken Unknown] Simvastatin [Zocor] 40 mg PO HS 07/13/14 [Last Taken 07/20/14] Fluticasone Propionate [Flovent Hfa] 1 inh IH BID 10/07/14 [Last Taken Unknown] Ipratropium [place] [Atrovent Hfa] 2 puff IH TID 10/07/14 [Last Taken Unknown] Acetaminophen [Tylenol] 650 mg PO QID PRN #0 tablet 01/18/15 [Last Taken Unknown ] Potassium Chloride [Klor-Con 10] 20 meq PO DAILY 07/03/15 [Last Taken Unknown] Atenolol [Tenormin] 50 mg PO BID 07/04/15 [Last Taken Unknown] Theophylline Anhydrous [Gunner-24] 400 mg PO DAILY 07/04/15 [Last Taken Unknown] Olodaterol HCl [Striverdi Respimat] 2 puff IH BID 10/15/16 [Last Taken Unknown] Albuterol Sulfate [Albuterol Sulfate 2.5 MG/3 ML] 2.5 mg IH Q4H PRN 11/10/16 [ Last Taken Unknown] Finasteride [Proscar] 5 mg PO DAILY 11/10/16 [Last Taken Unknown] Tamsulosin HCl [Flomax] 0.8 mg PO DAILY 11/10/16 [Last Taken Unknown] Naproxen Sodium [Aleve] 220 mg PO BID 12/08/16 [Last Taken Unknown] Exam - Exam Vital Signs: Vital Signs - Last Taken Selected Entries 12/08/16 12/08/16 12/08/16 08:39 09:02 10:55 Temperature Pulse Rate 85 106 H Respiratory 23 H Rate Blood Pressure 149/61 O2 Sat by Pulse 84 L 95 Oximetry Oxygen Delivery Nasal Cannula Nasal Cannula Method Oxygen Flow 2 3 Rate 12/08/16 12/08/16 13:28 14:42 Temperature 38.3 C H 38.3 C H Pulse Rate Respiratory 24 H Rate Blood Pressure O2 Sat by Pulse Oximetry Oxygen Delivery Method Oxygen Flow Rate Constitutional: Present: Alert, Oriented x3, Cooperative, Well developed, Well nourished, No distress, Obese ENT Exam: Present: normal ENT inspection, hearing grossly normal, pharynx normal , TMs normal, nasal drainage Eye Exam: bilateral eye: normal inspection, PERRL, EOMI Neck: Present: supple Respiratory: Present: normal breath sounds, no respiratory distress, decreased breath sounds, wheezing Cardiovascular/Chest: Present: regular rate, rhythm, no murmur Abdomen: Present: Normal bowel sounds, soft, nontender, nondistended, no rebound tenderness, no hepatospenomegaly, no masses Extremity: Present: normal inspection. Absent: pedal edema Skin Exam: Present: no cyanosis, cool/dry Neurologic: Present: alert, oriented x 3 Appearance: Present: appropriate appearance, appropriate insight, neat, no memory impairment Eye contact: Present: cooperative, good eye contact, normal speech Thoughts: Present: normal thought pattern Diagnostic Studies: Laboratory Results WBC 13.4 K/mm3 (4.0-10.5) H 12/08/16 09:03 RBC 6.04 M/mm3 (4.7-6.0) H 12/08/16 09:03 Hgb 17.5 gm/dL (13.5-18.0) 12/08/16 09:03 Hct 55.8 % (42.0-52.0) H 12/08/16 09:03 MCV 92.4 fl (78-100) 12/08/16 09:03 MCH 29.0 pg (27-31) 12/08/16 09:03 MCHC 31.4 g/dl (32-36) L 12/08/16 09:03 RDW 13.6 % (11.5-14.0) 12/08/16 09:03 Plt Count 168 K/mm3 (150-450) 12/08/16 09:03 MPV 10.5 fl (6.0-9.5) H 12/08/16 09:03 Immature Gran % (Auto) 0.40 % (0.001-0.429) 12/08/16 09:03 Immature Gran # (Auto) 0.06 K/mm3 (0.000-0.0310) H 12/08/16 09:03 Neutrophils % 80.0 % (42-75.0) H 12/08/16 09:03 Lymphocytes % 11.9 % (20-51) L 12/08/16 09:03 Monocytes % 6.6 % (0.0-9) 12/08/16 09:03 Eosinophils % 0.8 % (0.0-3.0) 12/08/16 09:03 Basophils % 0.3 % (0.0-1.0) 12/08/16 09:03 Nucleated RBC % 0.0 k/mm3 (0-1) 12/08/16 09:03 Neutrophils # 10.7 K/mm3 (1.3-6.0) H 12/08/16 09:03 Lymphocytes # 1.6 k/mm3 (1.5-3.5) 12/08/16 09:03 Monocytes # 0.9 k/mm3 (0.0-1.0) 12/08/16 09:03 Eosinophils # 0.1 k/mm3 (0.0-0.7) 12/08/16 09:03 Absolute Basophils 0.0 k/mm3 (0.0-0.1) 12/08/16 09:03 Sodium 140 mmol/L (132-142) 12/08/16 09:03 Plasma Sodium 140 mmol/L (130-142) 12/08/16 09:03 Potassium 4.2 mmol/L (3.4-4.6) 12/08/16 09:03 Chloride 102 mmol/L (97-106) 12/08/16 09:03 Carbon Dioxide 32.7 mmol/L (24-32.6) H 12/08/16 09:03 Anion Gap 9.5 mmol/L (6.8-13.8) 12/08/16 09:03 BUN 19 mg/dL (6-23) 12/08/16 09:03 Creatinine 1.05 mg/dL (0.4-1.4) 12/08/16 09:03 Est GFR (Non-Af Amer) 71 mL/min (60-130) 12/08/16 09:03 BUN/Creatinine Ratio 18.1 (9.0-21.6) 12/08/16 09:03 Random Glucose 108 mg/dL (70-110) 12/08/16 09:03 Lactic Acid, Venous 1.4 mmol/L (0.4-1.9) 12/08/16 09:03 Calcium 9.9 mg/dL (7.9-10.9) 12/08/16 09:03 Calcium Adj for Albumin 10.0 mg/dL (8.4-10.2) 12/08/16 09:03 Total Bilirubin 0.8 mg/dL (0.0-1.1) 12/08/16 09:03 AST 19 U/L (0-48) 12/08/16 09:03 ALT 20 U/L (19-67) 12/08/16 09:03 Alkaline Phosphatase 117 U/L (50-170) 12/08/16 09:03 Troponin I Less than 0.017 ng/ml (0.00-0.10) 12/08/16 09:03 B-Natriuretic Peptide 627 pg/mL (5-650) 12/08/16 09:03 Total Protein 7.4 gm/dL (6.2-8.2) 12/08/16 09:03 Albumin 3.5 gm/dl (3.4-5.0) 12/08/16 09:03 Assessment/Plan - Narrative Narrative: O2, IV steroid, follow labs, breathing treatments, IV antibiotics,estimate stay of 4 days. - Assessment/Plan (1) Acute exacerbation of COPD with asthma Problem: Acute (2) Acute and chronic respiratory failure with hypoxia Problem: Acute (3) Diastolic CHF, chronic Problem: Acute (4) Hyperlipidemia Problem: Chronic (5) Hypertension Problem: Chronic Qualifiers: Hypertension type: essential hypertension Qualified Code(s): I10 - Essential (primary) hypertension
[2016-12-08] MEDS ORDERED: ACETAMINOPHEN 325 MG TABLET PO PRN (19:35)
[2016-12-08] MEDS ORDERED: ALBUTEROL SULFATE 2.5 MG/3 ML VIAL.NEB IH PRN (19:35)
[2016-12-08] MEDS: METHYLPREDNISOLONE SOD SUCC 30 MG in WATER FOR INJ.,BACTERIOSTATIC 0 ML IV SCH (20:21)
[2016-12-08] MEDS ORDERED: OLODATEROL HCL IH SCH (21:00)
[2016-12-08] MEDS ORDERED: FLUTICASONE PROPIONATE IH SCH (21:00)
[2016-12-08] MEDS: ATENOLOL 50 MG TABLET PO SCH (21:42)
[2016-12-08] MEDS: NAPROXEN SODIUM 220 MG TABLET PO SCH (21:42)
[2016-12-08] MEDS: ENOXAPARIN SODIUM 40 MG/0.4 ML SYRG SC SCH (21:42)
[2016-12-08] MEDS: SIMVASTATIN 40 MG TABLET PO SCH (21:43)
[2016-12-09 05:20] LABS: Hematocrit 45.7 % (42.0-52.0); Hemoglobin 14.4 gm/dL (13.5-18.0); Mean Cell Volume 90.9 fl (78-100); Mean Corpuscular Hemoglobin 28.6 pg (27-31); Mean Corpuscular Hgb Conc 31.5 g/dl (32-36); Mean Platelet Volume 10.8 fl (6.0-9.5); Neutrophil # 16.7 K/mm3 (1.3-6.0); Neutrophil % 88.4 % (42-75.0); Platelet Count 193 K/mm3 (150-450); Red Blood Count 5.03 M/mm3 (4.7-6.0); White Blood Count 18.9 K/mm3 (4.0-10.5)
[2016-12-09 05:45] LABS: Anion Gap 6.3 mmol/L (6.8-13.8); BUN/Creatinine Ratio 21.4 (9.0-21.6); Calcium * 9.4 mg/dL (7.9-10.9); Carbon Dioxide 35.5 mmol/L (24-32.6); Potassium 4.8 mmol/L (3.4-4.6); Theophylline 2.8 mcg/mL (10-20)
[2016-12-09] MEDS: PANTOPRAZOLE SODIUM 20 MG TABLET.DR PO SCH (06:53)
[2016-12-09] MEDS ORDERED: ALBUTEROL SULFATE 60 PUFF INHALER IH SCH (09:00)
[2016-12-09] MEDS ORDERED: POTASSIUM CHLORIDE 10 MEQ TABLET.SA PO SCH (09:00)
[2016-12-09] MEDS ORDERED: THEOPHYLLINE ANHYDROUS 200 MG TAB.SR.12H PO SCH (09:00)
[2016-12-09] MEDS ORDERED: THEOPHYLLINE ANHYDROUS 300 MG TAB.SR.12H PO SCH (09:00)
[2016-12-09] MEDS ORDERED: POTASSIUM CHLORIDE 20 MEQ TABLET.SA PO SCH (09:00)
[2016-12-09] MEDS: TAMSULOSIN HCL 0.4 MG CAP.SR.24H PO SCH (09:37)
[2016-12-09] MEDS: NAPROXEN SODIUM 220 MG TABLET PO SCH ×2 (09:37→20:39)
[2016-12-09] MEDS: FINASTERIDE 5 MG TABLET PO SCH (09:37)
[2016-12-09] MEDS: FUROSEMIDE 20 MG TABLET PO SCH (09:37)
[2016-12-09] MEDS: ATENOLOL 50 MG TABLET PO SCH ×2 (09:38→20:45)
[2016-12-09] MEDS: METHYLPREDNISOLONE SOD SUCC 30 MG in WATER FOR INJ.,BACTERIOSTATIC 0 ML IV SCH ×2 (09:38→20:40)
[2016-12-09] MEDS: BUDESONIDE 0.5 MG/2 ML VIAL.NEB IH SCH ×2 (09:57→19:52)
[2016-12-09] MEDS: ALBUTEROL SULFATE 2.5 MG/3 ML VIAL.NEB IH SCH ×3 (09:58→21:59)
--- NOTE | 2016-12-09 10:24 | PN ---
Subjective - Date and Time Seen Date: 12/09/16 Time: 10:21 Subjective Narrative: Less cough, less sob, feels better. O2 sats better, potassium slightly high. Objective - Review of Systems Generalized/Overall Review: Reports: Malaise EENTM: Reports: No Symptoms Reported Respiratory: Reports: Cough, Shortness of Breath Cardiac: Reports: No Symptoms Reported Abdominal: Reports: No Symptoms Reported, Bright blood from rectum Musculoskeletal Complaints: Reports: No Symptoms Reported Neurological: Reports: No Symptoms Reported Skin: Reports: No Symptoms Reported Endocrine: Reports: No Symptoms Reported Misc: All systems neg except as marked - Vitals Vitals: Last Vital Signs Selected Entries 12/09/16 12/09/16 06:00 09:58 Temperature 36.4 C L Temperature Temporal Artery Source Scan Pulse Rate 64 Respiratory 18 20 Rate Blood Pressure 101/49 O2 Sat by Pulse 97 98 Oximetry Oxygen Delivery Nasal Cannula Method Oxygen Flow 3 2 Rate - Abnormal Lab Findings Abnormal Lab Findings: Abnormal Lab Results 12/09/16 12/09/16 Range/Units 05:14 05:14 WBC 18.9 H D (4.0-10.5) K/mm3 MCHC 31.5 L (32-36) g/dl MPV 10.8 H (6.0-9.5) fl Immature Gran % (Auto) 0.70 H (0.001-0.429) % Immature Gran # (Auto) 0.14 H (0.000-0.0310) K/mm3 Neutrophils % 88.4 H (42-75.0) % Lymphocytes % 8.1 L (20-51) % Neutrophils # 16.7 H (1.3-6.0) K/mm3 Potassium 4.8 H (3.4-4.6) mmol/L Carbon Dioxide 35.5 H (24-32.6) mmol/L Anion Gap 6.3 L (6.8-13.8) mmol/L BUN 25 H (6-23) mg/dL Random Glucose 138 H (70-110) mg/dL Theophylline 2.8 L (10-20) mcg/mL - Exam Constitutional: Present: Alert, Oriented x3, Cooperative, Well developed, Well nourished, No distress ENT Exam: Present: normal ENT inspection, hard of hearing Neck: Present: normal inspection Respiratory: Present: no respiratory distress, decreased breath sounds, wheezing Cardiovascular/Chest: Present: regular rate, rhythm, no edema, no murmur Abdomen: Present: Normal bowel sounds, soft, nontender, nondistended, no rebound tenderness, no hepatospenomegaly Extremity: Present: normal inspection, no pedal edema Skin Exam: Present: normal color, warm/dry, no cyanosis Neurologic: Present: alert, oriented x 3 Appearance: Present: appropriate appearance, appropriate insight, neat, no memory impairment Eye contact: Present: cooperative, good eye contact, normal speech Thoughts: Present: normal thought pattern Assessment/Plan Plan Narrative: Stop potassium. Walk in halls. Same treatment otherwise. Home in a few days. - Problems/Diagnosis (1) Acute exacerbation of COPD with asthma Problem: Acute (2) Acute and chronic respiratory failure with hypoxia Problem: Acute (3) Diastolic CHF, chronic Problem: Acute (4) Hyperlipidemia Problem: Chronic (5) Hypertension Problem: Chronic Qualifiers: Hypertension type: essential hypertension Qualified Code(s): I10 - Essential (primary) hypertension (6) Hyperkalemia Problem: Acute
[2016-12-09] MEDS: LEVOFLOXACIN/D5W 500 MG/100 ML BAG IV SCH ×2 (12:54→14:22)
[2016-12-09] MEDS ORDERED: FORMOTEROL FUMARATE 20 MCG/2 ML VIAL IH SCH (19:00)
[2016-12-09] MEDS: STRIVERDI RESPIMAT PO SCH (20:39)
[2016-12-09] MEDS: ENOXAPARIN SODIUM 40 MG/0.4 ML SYRG SC SCH (20:41)
[2016-12-09] MEDS: SIMVASTATIN 40 MG TABLET PO SCH (20:45)
[2016-12-10 05:28] LABS: Hemoglobin 14.6 gm/dL (13.5-18.0); Mean Cell Volume 90.4 fl (78-100); Mean Corpuscular Hemoglobin 28.7 pg (27-31); Mean Corpuscular Hgb Conc 31.7 g/dl (32-36); Mean Platelet Volume 10.1 fl (6.0-9.5); Neutrophil # 14.8 K/mm3 (1.3-6.0); Neutrophil % 87.3 % (42-75.0); Platelet Count 218 K/mm3 (150-450); Red Blood Count 5.09 M/mm3 (4.7-6.0); Red Cell Distribution Width 13.9 % (11.5-14.0); White Blood Count 16.9 K/mm3 (4.0-10.5)
[2016-12-10 05:38] LABS: Anion Gap 6.6 mmol/L (6.8-13.8); Calcium * 9.3 mg/dL (7.9-10.9); Carbon Dioxide 34.1 mmol/L (24-32.6); Estimated Creat Clear 52.9; Potassium 4.7 mmol/L (3.4-4.6)
[2016-12-10] MEDS: BUDESONIDE 0.5 MG/2 ML VIAL.NEB IH SCH ×2 (06:04→16:00)
[2016-12-10] MEDS: ALBUTEROL SULFATE 2.5 MG/3 ML VIAL.NEB IH SCH ×3 (06:04→22:22)
[2016-12-10] MEDS: PANTOPRAZOLE SODIUM 20 MG TABLET.DR PO SCH (06:38)
[2016-12-10] MEDS: FUROSEMIDE 20 MG TABLET PO SCH (09:29)
[2016-12-10] MEDS: NAPROXEN SODIUM 220 MG TABLET PO SCH ×2 (09:29→20:56)
[2016-12-10] MEDS: METHYLPREDNISOLONE SOD SUCC 30 MG in WATER FOR INJ.,BACTERIOSTATIC 0 ML IV SCH ×2 (09:29→20:58)
[2016-12-10] MEDS: FINASTERIDE 5 MG TABLET PO SCH (09:29)
[2016-12-10] MEDS: STRIVERDI RESPIMAT PO SCH ×2 (09:30→20:58)
[2016-12-10] MEDS: TAMSULOSIN HCL 0.4 MG CAP.SR.24H PO SCH (09:30)
[2016-12-10] MEDS: THEOPHYLLINE ANHYDROUS 200 MG TAB.SR.12H PO SCH (09:30)
[2016-12-10] MEDS: ATENOLOL 50 MG TABLET PO SCH ×2 (09:31→20:57)
[2016-12-10] MEDS ORDERED: MAGNESIUM HYDROXIDE 30 ML UDC PO ONE (09:39)
--- NOTE | 2016-12-10 12:14 | PN ---
<Galina Lugo - Last Filed: 12/10/16 12:06> Subjective - Date and Time Seen Date: 12/10/16 Time: 11:15 Subjective Narrative: feeling better - less short of breath. on 2L nc, sats 97%. denies any needs Objective - Review of Systems Generalized/Overall Review: Reports: No Symptoms Reported EENTM: Reports: No Symptoms Reported Respiratory: Reports: Cough Cardiac: Reports: No Symptoms Reported Abdominal: Reports: No Symptoms Reported Genitourinary Symptoms: Reports: No Symptoms Reported Musculoskeletal Complaints: Reports: No Symptoms Reported Neurological: Reports: No Symptoms Reported Skin: Reports: No Symptoms Reported Endocrine: Reports: No Symptoms Reported Misc: All systems neg except as marked - Vitals Vitals: Last Vital Signs Temp 36.6 C 12/10/16 11:00 Pulse 80 12/10/16 11:00 Resp 18 12/10/16 11:00 BP 97/44 12/10/16 11:00 Pulse Ox 97 12/10/16 11:00 - Abnormal Lab Findings Abnormal Lab Findings: Abnormal Lab Results 12/10/16 12/10/16 Range/Units 05:15 05:15 WBC 16.9 H (4.0-10.5) K/mm3 MCHC 31.7 L (32-36) g/dl MPV 10.1 H (6.0-9.5) fl Immature Gran % (Auto) 1.20 H (0.001-0.429) % Immature Gran # (Auto) 0.20 H (0.000-0.0310) K/mm3 Neutrophils % 87.3 H (42-75.0) % Lymphocytes % 7.3 L (20-51) % Neutrophils # 14.8 H (1.3-6.0) K/mm3 Lymphocytes # 1.2 L (1.5-3.5) k/mm3 Potassium 4.7 H (3.4-4.6) mmol/L Carbon Dioxide 34.1 H (24-32.6) mmol/L Anion Gap 6.6 L (6.8-13.8) mmol/L BUN 27 H (6-23) mg/dL BUN/Creatinine Ratio 26.0 H (9.0-21.6) Random Glucose 142 H (70-110) mg/dL - Exam Constitutional: Present: Alert, Cooperative, No distress ENT Exam: Present: hearing grossly normal Neck: Present: full range of motion, supple Breasts: Present: Exam deferred Respiratory: Present: chest non-tender, no respiratory distress, decreased breath sounds Cardiovascular/Chest: Present: normal peripheral pulses, regular rate, rhythm Abdomen: Present: soft, nontender, nondistended /Rectal: Present: Exam deferred Extremity: Present: non-tender, normal inspection Skin Exam: Present: normal color, warm/dry, no cyanosis Assessment/Plan Plan Narrative: Acute exac of COPD with hypoxia - currently on 2L nc - wean O2 as able, wears at home at night - cont levaquin - cont iv steroids - cbc shows improvement. - duonebs q 8 hours scheduled - ? home early next week Diastolic CHF - improved since admission - weight down 2.7 kg from admission - breathing improved - cont strict I&Os, daily weights Hyperkalemia - mild increase in potassium but improved from yesterday - no symptoms, monitor for now. HTN - vital signs q 4 hours HLD - stable Code Status: full code VTE: lovenox GI proph: protonix po. - Problems/Diagnosis (1) Acute exacerbation of COPD with asthma Problem: Acute (2) Hyperkalemia Problem: Acute (3) Acute and chronic respiratory failure with hypoxia Problem: Acute (4) Diastolic CHF, chronic Problem: Acute (5) Hyperlipidemia Problem: Chronic QualifierTitle: Hyperlipidemia type: unspecified Qualified Code(s): E78.5 - Hyperlipidemia, unspecified (6) Hypertension Problem: Chronic QualifierTitle: Hypertension type: essential hypertension Qualified Code( s): I10 - Essential (primary) hypertension <Champ Mcclure - Last Filed: 12/10/16 16:16> Subjective Subjective Narrative: Continues to improve. Will do well at home. perhaps will go home it two days. I personally supervised all of our nurse practitioner hospitalist's care for this patient. Objective - Vitals Vitals: Last Vital Signs Temp 36.3 C L 12/10/16 15:00 Pulse 80 12/10/16 16:03 Resp 20 12/10/16 16:03 BP 107/43 12/10/16 15:00 Pulse Ox 91 12/10/16 16:03 - Abnormal Lab Findings Abnormal Lab Findings: Abnormal Lab Results 12/10/16 12/10/16 Range/Units 05:15 05:15 WBC 16.9 H (4.0-10.5) K/mm3 MCHC 31.7 L (32-36) g/dl MPV 10.1 H (6.0-9.5) fl Immature Gran % (Auto) 1.20 H (0.001-0.429) % Immature Gran # (Auto) 0.20 H (0.000-0.0310) K/mm3 Neutrophils % 87.3 H (42-75.0) % Lymphocytes % 7.3 L (20-51) % Neutrophils # 14.8 H (1.3-6.0) K/mm3 Lymphocytes # 1.2 L (1.5-3.5) k/mm3 Potassium 4.7 H (3.4-4.6) mmol/L Carbon Dioxide 34.1 H (24-32.6) mmol/L Anion Gap 6.6 L (6.8-13.8) mmol/L BUN 27 H (6-23) mg/dL BUN/Creatinine Ratio 26.0 H (9.0-21.6) Random Glucose 142 H (70-110) mg/dL Assessment/Plan - Problems/Diagnosis (1) Acute exacerbation of COPD with asthma Problem: Acute (2) Acute and chronic respiratory failure with hypoxia Problem: Acute (3) Diastolic CHF, chronic Problem: Acute (4) Hyperlipidemia Problem: Chronic Qualifiers: Hyperlipidemia type: unspecified Qualified Code(s): E78.5 - Hyperlipidemia , unspecified (5) Hypertension Problem: Chronic Qualifiers: Hypertension type: essential hypertension Qualified Code(s): I10 - Essential (primary) hypertension (6) Hyperkalemia Problem: Acute
[2016-12-10] MEDS: LEVOFLOXACIN/D5W 500 MG/100 ML BAG IV SCH (12:53)
[2016-12-10] MEDS: diphenhydrAMINE HCL 50 MG CAPSULE PO PRN (20:56)
[2016-12-10] MEDS: SIMVASTATIN 40 MG TABLET PO SCH (20:57)
[2016-12-10] MEDS: ENOXAPARIN SODIUM 40 MG/0.4 ML SYRG SC SCH (20:58)
[2016-12-11] MEDS: ALBUTEROL SULFATE 2.5 MG/3 ML VIAL.NEB IH SCH ×3 (06:07→22:12)
[2016-12-11] MEDS: BUDESONIDE 0.5 MG/2 ML VIAL.NEB IH SCH ×2 (06:07→18:05)
[2016-12-11] MEDS: PANTOPRAZOLE SODIUM 20 MG TABLET.DR PO SCH (07:25)
[2016-12-11] MEDS: NAPROXEN SODIUM 220 MG TABLET PO SCH ×2 (08:20→20:29)
[2016-12-11] MEDS: FINASTERIDE 5 MG TABLET PO SCH (08:21)
[2016-12-11] MEDS: FUROSEMIDE 20 MG TABLET PO SCH (08:21)
[2016-12-11] MEDS: TAMSULOSIN HCL 0.4 MG CAP.SR.24H PO SCH (08:21)
[2016-12-11] MEDS: METHYLPREDNISOLONE SOD SUCC 30 MG in WATER FOR INJ.,BACTERIOSTATIC 0 ML IV SCH ×2 (08:22→20:28)
[2016-12-11] MEDS: ATENOLOL 50 MG TABLET PO SCH ×2 (08:22→20:29)
[2016-12-11] MEDS: THEOPHYLLINE ANHYDROUS 200 MG TAB.SR.12H PO SCH (08:23)
[2016-12-11] MEDS: PSYLLIUM SEED 1 PACKET PACKET PO SCH (08:25)
[2016-12-11] MEDS: STRIVERDI RESPIMAT PO SCH ×2 (08:26→20:30)
[2016-12-11] MEDS ORDERED: MAGNESIUM CITRATE 300 ML BTL PO SCH (09:00)
[2016-12-11] MEDS: LEVOFLOXACIN/D5W 500 MG/100 ML BAG IV SCH (12:41)
--- NOTE | 2016-12-11 18:57 | PN ---
Subjective - Date and Time Seen Date: 12/11/16 Time: 07:00 Subjective Narrative: Continues to improve. Will do well at home. perhaps will go home it two days. I personally supervised all of our nurse practitioner hospitalist's care for this patient. Constipated. Didn't get his laxatives yesterday. Objective - Review of Systems Generalized/Overall Review: Reports: No Symptoms Reported EENTM: Reports: No Symptoms Reported Respiratory: Reports: Cough Cardiac: Reports: No Symptoms Reported Abdominal: Reports: Constipation Genitourinary Symptoms: Reports: No Symptoms Reported Musculoskeletal Complaints: Reports: No Symptoms Reported Neurological: Reports: No Symptoms Reported Skin: Reports: No Symptoms Reported Endocrine: Reports: No Symptoms Reported Misc: All systems neg except as marked - Vitals Vitals: Last Vital Signs Selected Entries 12/11/16 12/11/16 03:00 06:16 Temperature 36.6 C Temperature Oral Source Pulse Rate 82 84 Respiratory 18 20 Rate Blood Pressure 111/55 Blood Pressure Supine Position O2 Sat by Pulse 95 Oximetry Oxygen Delivery Nasal Cannula Nasal Cannula Method Oxygen Flow 2 2 Rate - Exam Constitutional: Present: Alert, Oriented x3, Cooperative, Well developed, Well nourished, No distress ENT Exam: Present: normal ENT inspection, pharynx normal, hard of hearing Neck: Present: normal inspection Respiratory: Present: lungs clear, no respiratory distress Cardiovascular/Chest: Present: regular rate, rhythm, no murmur Abdomen: Present: Normal bowel sounds, soft, nontender, nondistended, no rebound tenderness, no hepatospenomegaly, no masses Extremity: Present: normal range of motion, no pedal edema Skin Exam: Present: normal color, warm/dry, no cyanosis Neurologic: Present: alert, oriented x 3 Appearance: Present: appropriate appearance, appropriate insight, neat, no memory impairment Eye contact: Present: cooperative, good eye contact, normal speech Thoughts: Present: normal thought pattern Assessment/Plan Plan Narrative: Laxatives. Otherwise same meds. Probably home tomorrow. - Problems/Diagnosis (1) Acute exacerbation of COPD with asthma Problem: Acute (2) Acute and chronic respiratory failure with hypoxia Problem: Acute (3) Diastolic CHF, chronic Problem: Acute (4) Hyperlipidemia Problem: Chronic Qualifiers: Hyperlipidemia type: unspecified Qualified Code(s): E78.5 - Hyperlipidemia , unspecified (5) Hypertension Problem: Chronic Qualifiers: Hypertension type: essential hypertension Qualified Code(s): I10 - Essential (primary) hypertension (6) Hyperkalemia Problem: Acute (7) Acute constipation Problem: Acute
[2016-12-11] MEDS: SIMVASTATIN 40 MG TABLET PO SCH (20:28)
[2016-12-11] MEDS: ENOXAPARIN SODIUM 40 MG/0.4 ML SYRG SC SCH (20:28)
[2016-12-11] MEDS: diphenhydrAMINE HCL 50 MG CAPSULE PO PRN (20:39)
[2016-12-12] MEDS: BUDESONIDE 0.5 MG/2 ML VIAL.NEB IH SCH (06:06)
[2016-12-12] MEDS: ALBUTEROL SULFATE 2.5 MG/3 ML VIAL.NEB IH SCH (06:07)
[2016-12-12] MEDS: PANTOPRAZOLE SODIUM 20 MG TABLET.DR PO SCH (07:07)
[2016-12-12] MEDS: ATENOLOL 50 MG TABLET PO SCH (08:27)
[2016-12-12] MEDS: FINASTERIDE 5 MG TABLET PO SCH (08:27)
[2016-12-12] MEDS: TAMSULOSIN HCL 0.4 MG CAP.SR.24H PO SCH (08:27)
[2016-12-12] MEDS: FUROSEMIDE 20 MG TABLET PO SCH (08:28)
[2016-12-12] MEDS: NAPROXEN SODIUM 220 MG TABLET PO SCH (08:28)
[2016-12-12] MEDS: PSYLLIUM SEED 1 PACKET PACKET PO SCH (08:30)
[2016-12-12] MEDS: STRIVERDI RESPIMAT PO SCH (08:32)
[2016-12-12] MEDS: THEOPHYLLINE ANHYDROUS 200 MG TAB.SR.12H PO SCH (08:32)
[2016-12-12] MEDS: METHYLPREDNISOLONE SOD SUCC 30 MG in WATER FOR INJ.,BACTERIOSTATIC 0 ML IV SCH (08:34)
[2016-12-12] MEDS ORDERED: MAGNESIUM CITRATE 300 ML BTL PO SCH (09:00)
[2016-12-12 11:40] VITALS: BP 119/55
--- NOTE | 2016-12-12 12:21 | DS ---
(1) Acute exacerbation of COPD with asthma Problem: Acute (2) Acute and chronic respiratory failure with hypoxia Problem: Acute (3) Diastolic CHF, chronic Problem: Chronic (4) Hyperlipidemia Problem: Chronic Qualifiers: Hyperlipidemia type: unspecified Qualified Code(s): E78.5 - Hyperlipidemia , unspecified (5) Hypertension Problem: Chronic Qualifiers: Hypertension type: essential hypertension Qualified Code(s): I10 - Essential (primary) hypertension (6) Hyperkalemia Problem: Acute (7) Acute constipation Problem: Resolved Description of Stay: Treated with additional supplemental oxygen, which was weaned back to oxygen while sleeping only as he improved, which his usual at-home treatment, as he improved. Otherwise, he was treated with IV steroids, IV antibiotics and breathing treatments. He steadily improved in the hospital. He developed constipation towards the end of his hospital stay, successfully relieved with Mag Citrate and Metamucil. Mild hyperkalemia was noted, which will be followed as an outpatient. Procedures Performed: none Discharge Disposition: Home self care Disposition: Home self-care Condition: Stable Referrals: Champ Mcclure MD [Primary Care Provider] - Problem Oriented Discharge Instructions to Patient/Family: Chronic Obstructive Pulmonary Disease Exacerbation, [id number] Additional Patient Instructions (free text): Followup Dr. Cagle 1 week. CBC BMP 1 week. O2 nasal canula 2 Liters per minute when sleeping Prescriptions (Any new or edited meds): Levofloxacin [Levaquin] 500 mg PO DAILY #7 tablet Psyllium Husk (with Sugar) [Metamucil] 2 each PO DAILY #60 packet predniSONE [Prednisone] 3 tab PO BID #42 tab Complete Home Medications List: Complete Home Medication List: Furosemide [Lasix] 20 mg PO DAILY 07/13/14 Omeprazole [Prilosec] 20 mg PO DAILY 07/13/14 Simvastatin [Zocor] 40 mg PO HS 07/13/14 Fluticasone Propionate [Flovent Hfa] 1 inh IH BID 10/07/14 Ipratropium [place] [Atrovent Hfa] 2 puff IH TID 10/07/14 Acetaminophen [Tylenol] 650 mg PO QID PRN #0 tablet 01/18/15 Atenolol [Tenormin] 50 mg PO BID 07/04/15 Olodaterol HCl [Striverdi Respimat] 2 puff IH BID 10/15/16 Albuterol Sulfate [Albuterol Sulfate 2.5 MG/3 ML] 2.5 mg IH Q4H PRN 11/10/16 Finasteride [Proscar] 5 mg PO DAILY 11/10/16 Tamsulosin HCl [Flomax] 0.8 mg PO DAILY 11/10/16 Naproxen Sodium [Aleve] 220 mg PO BID 12/08/16 Levofloxacin [Levaquin] 500 mg PO DAILY #7 tablet 12/12/16 Psyllium Husk (with Sugar) [Metamucil] 2 each PO DAILY #60 packet 12/12/16 predniSONE [Prednisone] 3 tab PO BID #42 tab 12/12/16
== END 2016-12-12 13:50 | disposition home health service (06) | DRG 189 ==
LOC: ER 08:27 → MS 13:09
PROVIDERS: ADMIT Family Medicine; ATTEND Allergy & Immunology
DX: J96.21 Acute and chronic respiratory failure with hypoxia (principal); J44.1 Chronic obstructive pulmonary disease with (acute) exacerbation; I50.32 Chronic diastolic (congestive) heart failure; E87.5 Hyperkalemia; K59.00 Constipation, unspecified; J45.909 Unspecified asthma, uncomplicated; I10 Essential (primary) hypertension; E78.5 Hyperlipidemia, unspecified; Z99.81 Dependence on supplemental oxygen; Z87.891 Personal history of nicotine dependence; Z87.01 Personal history of pneumonia (recurrent)

== ENCOUNTER 2017-01-11 10:01 | Inpatient (IN) | payer MEDICARE, BC ==
[2017-01-11] MEDS ORDERED: ACETAMINOPHEN 325 MG TABLET PO PRN (10:08)
[2017-01-11] MEDS ORDERED: ALBUTEROL SULFATE 2.5 MG/3 ML VIAL.NEB IH PRN (10:08)
[2017-01-11] MEDS ORDERED: LEVOFLOXACIN/D5W 750 MG/150 ML BAG IV STA (10:13)
[2017-01-11] MEDS ORDERED: ENOXAPARIN SODIUM 40 MG/0.4 ML SYRG SC SCH (11:00)
[2017-01-11 11:24] LABS: Hemoglobin 12.7 gm/dL (13.5-18.0); Mean Cell Volume 90.5 fl (78-100); Mean Platelet Volume 9.7 fl (6.0-9.5); Platelet Count 374 K/mm3 (150-450); Red Blood Count 4.53 M/mm3 (4.7-6.0); Red Cell Distribution Width 14.3 % (11.5-14.0); White Blood Count 11.6 K/mm3 (4.0-10.5)
[2017-01-11 11:27] LABS: Total Cells Counted 100
[2017-01-11 11:32] LABS: Prothrombin Time (Patient) 10.9 Seconds (9.4-11.4)
[2017-01-11 11:33] LABS: INR 1.05 INR (0.90-1.10)
[2017-01-11 11:42] LABS: Troponin I 0.018 ng/ml (0.00-0.10)
[2017-01-11 11:46] LABS: Albumin * 2.5 gm/dl (3.4-5.0); Anion Gap 4.5 mmol/L (6.8-13.8); Bilirubin, Total 0.4 mg/dL (0.0-1.1); CKMB 0.6 ng/mL (0.0-9.0); Ca. Corrected For Albumin 10.3 mg/dL (8.4-10.2); Calcium * 9.4 mg/dL (7.9-10.9); Carbon Dioxide 37.6 mmol/L (24-32.6); Chol/HDL Risk Ratio 2.8 mg/dL (3.3-5.0); Potassium 4.1 mmol/L (3.4-4.6); Total Protein 6.2 gm/dL (6.2-8.2)
[2017-01-11 11:51] LABS: Atypical (Reactive) Lymph 1 % (0-2); Eosinophil 3 % (0-3); Lymphocyte 22 % (20-51); Monocyte 13 % (0-9); Neutrophil 61 % (42-75); Neutrophil # 7.1 K/mm3 (1.3-6.0)
[2017-01-11 11:53] LABS: Ovalocytes Trace; Platelet Estimate Normal (NORMAL)
[2017-01-11] MEDS: IPRATROPIUM BROMIDE 0.5 MG/2.5 ML VIAL.NEB IH SCH ×2 (12:42→19:16)
[2017-01-11 12:46] LABS: Urine Bilirubin Negative (NEGATIVE); Urine Blood Negative /ul (NEGATIVE); Urine Ketone Negative (NEGATIVE); Urine Nitrite Negative (NEGATIVE); Urine Protein Negative (NEGATIVE); Urine Specific Gravity <=1.005 SP.GR. (1.005-1.030); Urine Urobilinogen Normal (NORMAL)
[2017-01-11 13:02] LABS: Urine Appearance Clear; Urine Bacteria TRACE; Urine Color Yellow; Urine RBC TRACE /hpf (0-5); Urine WBC None Seen /hpf (0-5)
--- NOTE | 2017-01-11 17:58 | HP ---
Chief Complaint - Chief Complaint Date of Service: 01/11/17 Time of Service: 09:25 Chief Complaint: Dyspnea History of Present Illness: This is an 89 y/o man with known asthma and diastolic dysfunction who became sob 01/04/17. He steadily worsened, and then presented to the [facility] ER on . He also had a nonproductive cough. He was not wheezing. He was started on oral antibiotics and sent home. He was seen in the office 3 days ago and his cough had become productive, but was otherwise about the same. Antibiotics were continued. He returned today, but was more dyspeic and was also found to be in atrial fibrillation. For these reasons, he was admitted to the hospital. He will be switched to a different antibiotic which will be given IV. He will be given IV Lasix, monitored carefully, an echo will be done, and he will be anticoagulated. - Patient's Past Medical History Patient History - Medical: Arthritis, Cataracts, GERD Patient History - Cardiac/Respiratory: Aneurysm, Asthma, Bronchitis, CHF, COPD, Hypertension, Hyperlipidemia, Pneumonia, Home O2 Use, Other Patient History - Cancer: Bladder Patient History - Surgical Procedures: Colonoscopy, Total Knee Replacement, T & A, Other, Urology Patient History - Other: None - Family History Mother Family History - Medical: , Diabetes Type 2 Family History - Cardiac/Respiratory: Coronary Heart Disease, Myocardial Infarction Family History - Cancer: Breast Father Family History - Medical: Family History - Cardiac/Respiratory: CVA/Stroke Brother Family History - Medical: Sister Family History - Medical: - Social History Living Situations: other Abuse History: No History of abuse Psych History: No pertinent hx Does anyone smoke in the home?: No Smoking Status: Former smoker Have you smoked in the past 12 months: No Do you dip or chew tobacco: No Patient requests Smoking Cessation Consult: No Initiate information on Smoking Cessation: No Alcohol Use: rarely Drug Use: none - Immunizations Immunizations Up to Date: Yes Hx Pneumococcal Vaccination: Yes History of Influenza Vaccine: Yes Review Of Systems (GEN) - Review of Systems Generalized/Overall Review: Present: Malaise EENTM: Present: No Symptoms Reported Respiratory: Present: Cough, Shortness of Breath Cardiac: Present: No Symptoms Reported Abdominal: Present: No Symptoms Reported Genitourinary: Present: No Symptoms Reported Musculoskeletal: Present: No Symptoms Reported Neurological: Present: No Symptoms Reported Skin: Present: No Symptoms Reported Endocrine: Present: No Symptoms Reported Misc: All systems neg except as marked Immunizations: IMMUNIZATION HX Immunizations Up to Date Yes History of Influenza Vaccine Yes Hx Pneumococcal Vaccination Yes Allergies/Adverse Reactions: Allergies Allergy/AdvReac Type Severity Reaction Status Date / Time oxycodone HCl Allergy Severe Other Verified 01/11/17 10:20 [From OxyContin] zolpidem tartrate Allergy Unknown Verified 01/11/17 10:20 [From Ambien] colchicine AdvReac Intermediate Other Verified 01/11/17 10:20 cilostazol AdvReac Verified 01/11/17 10:20 celostogol AdvReac Intermediate Other Uncoded 01/11/17 10:20 Home Medications: HOME MEDICATIONS Furosemide [Lasix] 20 mg PO DAILY 07/13/14 [Last Taken 07/20/14] Omeprazole [Prilosec] 40 mg PO DAILY 07/13/14 [Last Taken Unknown] Simvastatin [Zocor] 40 mg PO HS 07/13/14 [Last Taken 07/20/14] Fluticasone Propionate [Flovent Hfa] 1 inh IH BID 10/07/14 [Last Taken Unknown] Ipratropium [place] [Atrovent Hfa] 2 puff IH TID 10/07/14 [Last Taken Unknown] Acetaminophen [Tylenol] 650 mg PO QID PRN #0 tablet 01/18/15 [Last Taken Unknown ] Atenolol [Tenormin] 50 mg PO BID 07/04/15 [Last Taken Unknown] Olodaterol HCl [Striverdi Respimat] 2 puff IH DAILY 10/15/16 [Last Taken Unknown ] Albuterol Sulfate [Albuterol Sulfate 2.5 MG/3 ML] 2.5 mg IH Q4H PRN 11/10/16 [ Last Taken Unknown] Finasteride [Proscar] 5 mg PO DAILY 11/10/16 [Last Taken Unknown] Tamsulosin HCl [Flomax] 0.8 mg PO DAILY@1800 11/10/16 [Last Taken Unknown] Naproxen Sodium [Aleve] 220 mg PO BID 12/08/16 [Last Taken Unknown] Cefuroxime Axetil [Ceftin] 500 mg PO BID #17 tab 01/06/17 [Last Taken Unknown] diphenhydrAMINE HCL [Benadryl] 50 mg PO HS 01/11/17 [Last Taken Unknown] Exam - Exam Vital Signs: Vital Signs - Last Taken 01/11/2017 09:23 AM BP 84/50 Sitting Pulse 85 Resp 24 Weight in Kg 98 Height in Cm 182 BMI 29.59 O2 SAT with O2 nasal canula 91 % (O2 sat 3 days ago in the office was 95%. In the office 3 days ago, he was not perceptibly SOB at rest. Today, he was rather markedly SOB with pursed lip breathing, in other words a definite change for the worse.) Constitutional: Present: Alert, Oriented x3, Cooperative, Well developed, Well nourished, No distress ENT Exam: Present: normal ENT inspection, hearing grossly normal Eye Exam: bilateral eye: normal inspection, PERRL, EOMI Neck: Present: normal inspection Back Exam: Present: normal inspection Respiratory: Present: normal breath sounds, rales, rhonchi Cardiovascular/Chest: Present: no edema, irregularly irregular Abdomen: Present: Normal bowel sounds, soft, nontender, nondistended, no rebound tenderness, no hepatospenomegaly, no masses, obese Extremity: Absent: pedal edema Skin Exam: Present: no cyanosis, cool/dry Neurologic: Present: alert, oriented x 3 Appearance: Present: appropriate appearance, appropriate insight, neat, no memory impairment Eye contact: Present: cooperative, good eye contact, normal speech Thoughts: Present: normal thought pattern Diagnostic Studies: Abnormal Lab Results 01/11/17 01/11/17 Range/Units 11:10 11:10 WBC 11.6 H (4.0-10.5) K/mm3 RBC 4.53 L (4.7-6.0) M/mm3 Hgb 12.7 L (13.5-18.0) gm/dL Hct 41.0 L (42.0-52.0) % MCHC 31.0 L (32-36) g/dl RDW 14.3 H (11.5-14.0) % MPV 9.7 H (6.0-9.5) fl Monocytes % (Manual) 13 H (0-9) % Neutrophils # (Manual) 7.1 H (1.3-6.0) K/mm3 Monocytes # (Manual) 1.5 H (0.0-1.0) k/mm3 Carbon Dioxide 37.6 H (24-32.6) mmol/L Anion Gap 4.5 L (6.8-13.8) mmol/L Calcium Adj for Albumin 10.3 H (8.4-10.2) mg/dL ALT 18 L (19-67) U/L B-Natriuretic Peptide 925 H (5-650) pg/mL Albumin 2.5 L (3.4-5.0) gm/dl LDL Cholesterol 50 L (70-130) mg/dL HDL Cholesterol 38 L (40-60) mg/dL Cholesterol/HDL Ratio 2.8 L (3.3-5.0) mg/dL Microbiology 01/11/17 12:30 Sputum Culture - Preliminary Sputum Laboratory Results WBC 11.6 K/mm3 (4.0-10.5) H 01/11/17 11:10 RBC 4.53 M/mm3 (4.7-6.0) L 01/11/17 11:10 Hgb 12.7 gm/dL (13.5-18.0) L 01/11/17 11:10 Hct 41.0 % (42.0-52.0) L 01/11/17 11:10 MCV 90.5 fl (78-100) 01/11/17 11:10 MCH 28.0 pg (27-31) 01/11/17 11:10 MCHC 31.0 g/dl (32-36) L 01/11/17 11:10 RDW 14.3 % (11.5-14.0) H 01/11/17 11:10 Plt Count 374 K/mm3 (150-450) 01/11/17 11:10 MPV 9.7 fl (6.0-9.5) H 01/11/17 11:10 Neutrophils % (Manual) 61 % (42-75) 01/11/17 11:10 Lymphocytes % (Manual) 22 % (20-51) 01/11/17 11:10 Monocytes % (Manual) 13 % (0-9) H 01/11/17 11:10 Eosinophils % (Manual) 3 % (0-3) 01/11/17 11:10 Neutrophils # (Manual) 7.1 K/mm3 (1.3-6.0) H 01/11/17 11:10 Lymphocytes # (Manual) 2.6 k/mm3 (1.5-3.5) 01/11/17 11:10 Monocytes # (Manual) 1.5 k/mm3 (0.0-1.0) H 01/11/17 11:10 Eosinophils # (Manual) 0.3 k/mm3 (0.0-0.7) 01/11/17 11:10 Atypic/Reactive Lymphs 1 % (0-2) 01/11/17 11:10 Platelet Estimate Normal (NORMAL) 01/11/17 11:10 Ovalocytes Trace 01/11/17 11:10 PT 10.9 Seconds (9.4-11.4) 01/11/17 11:10 INR (Anticoag Therapy) 1.05 INR (0.90-1.10) 01/11/17 11:10 PTT (Mp) 25.0 Seconds (24-32) 01/11/17 11:10 Sodium 139 mmol/L (132-142) 01/11/17 11:10 Plasma Sodium 139 mmol/L (130-142) 01/11/17 11:10 Potassium 4.1 mmol/L (3.4-4.6) 01/11/17 11:10 Chloride 101 mmol/L (97-106) 01/11/17 11:10 Carbon Dioxide 37.6 mmol/L (24-32.6) H 01/11/17 11:10 Anion Gap 4.5 mmol/L (6.8-13.8) L 01/11/17 11:10 BUN 15 mg/dL (6-23) 01/11/17 11:10 Creatinine 1.00 mg/dL (0.4-1.4) 01/11/17 11:10 Est GFR (Non-Af Amer) 75 mL/min (60-130) 01/11/17 11:10 BUN/Creatinine Ratio 15.0 (9.0-21.6) 01/11/17 11:10 Random Glucose 74 mg/dL (70-110) 01/11/17 11:10 Lactic Acid, Venous 1.7 mmol/L (0.4-1.9) 01/11/17 11:10 Calcium 9.4 mg/dL (7.9-10.9) 01/11/17 11:10 Calcium Adj for Albumin 10.3 mg/dL (8.4-10.2) H 01/11/17 11:10 Total Bilirubin 0.4 mg/dL (0.0-1.1) 01/11/17 11:10 AST 16 U/L (0-48) 01/11/17 11:10 ALT 18 U/L (19-67) L 01/11/17 11:10 Alkaline Phosphatase 81 U/L (50-170) 01/11/17 11:10 Creatine Kinase 30 U/L (0-259) 01/11/17 11:10 CK-MB (CK-2) 0.6 ng/mL (0.0-9.0) 01/11/17 11:10 CK-MB (CK-2) Rel Index 2.0 (0.0-3.6) 01/11/17 11:10 Troponin I 0.018 ng/ml (0.00-0.10) 01/11/17 11:10 B-Natriuretic Peptide 925 pg/mL (5-650) H 01/11/17 11:10 Total Protein 6.2 gm/dL (6.2-8.2) 01/11/17 11:10 Albumin 2.5 gm/dl (3.4-5.0) L 01/11/17 11:10 Triglycerides 109 mg/dL (30-200) 01/11/17 11:10 Cholesterol 110 mg/dL (0-200) 01/11/17 11:10 LDL Cholesterol 50 mg/dL (70-130) L 01/11/17 11:10 VLDL Cholesterol 22 mg/dL (5-40) 01/11/17 11:10 HDL Cholesterol 38 mg/dL (40-60) L 01/11/17 11:10 Cholesterol/HDL Ratio 2.8 mg/dL (3.3-5.0) L 01/11/17 11:10 Urine Color Yellow 01/11/17 12:30 Urine Appearance Clear 01/11/17 12:30 Urine pH 6.0 pH (5.0-7.0) 01/11/17 12:30 Ur Specific [place] <=1.005 SP.GR. (1.005-1.030) 01/11/17 12:30 Urine Protein Negative mg/dL (NEGATIVE) 01/11/17 12:30 Urine Glucose (UA) Negative mg/dL (NEGATIVE) 01/11/17 12:30 Urine Ketones Negative mg/dL (NEGATIVE) 01/11/17 12:30 Urine Blood Negative /ul (NEGATIVE) 01/11/17 12:30 Urine Nitrate Negative (NEGATIVE) 01/11/17 12:30 Urine Bilirubin Negative mg/dl (NEGATIVE) 01/11/17 12:30 Urine Urobilinogen Normal EU/dl (NORMAL) 01/11/17 12:30 Ur Leukocyte Esterase Negative /ul (NEGATIVE) 01/11/17 12:30 Urine RBC Trace /hpf (0-5) 01/11/17 12:30 Urine WBC None seen /hpf (0-5) 01/11/17 12:30 Ur Epithelial Cells None seen /hpf (0-5) 01/11/17 12:30 Urine Bacteria Trace (NONE) 01/11/17 12:30 Assessment/Plan - Narrative Narrative: Lasix IV. Antibiotics IV. Labs. Monitor. Hospital stay of 3-4 days. Echo. - Assessment/Plan (1) O2 dependent Problem: Acute (2) Atrial fibrillation Problem: Acute (3) CHF (congestive heart failure) Problem: Acute (4) Pneumonia Problem: Acute (5) Diastolic CHF, chronic Problem: Chronic (6) Hyperlipidemia Problem: Chronic Qualifiers: Hyperlipidemia type: unspecified Qualified Code(s): E78.5 - Hyperlipidemia , unspecified
[2017-01-11] MEDS: TAMSULOSIN HCL 0.4 MG CAP.SR.24H PO SCH (18:53)
[2017-01-11] MEDS: BUDESONIDE 0.5 MG/2 ML VIAL.NEB IH SCH (19:16)
[2017-01-11] MEDS: SIMVASTATIN 40 MG TABLET PO SCH (21:07)
[2017-01-11] MEDS: APIXABAN 2.5 MG TABLET PO SCH (21:08)
[2017-01-11] MEDS: ATENOLOL 50 MG TABLET PO SCH (21:08)
[2017-01-11] MEDS: diphenhydrAMINE HCL 50 MG CAPSULE PO SCH (21:09)
[2017-01-11] MEDS: FUROSEMIDE 10 MG/ML VIAL IV SCH (21:09)
[2017-01-11] MEDS: Olodaterol Hcl [Striverdi Respimat] IH SCH (21:11)
[2017-01-12 05:35] LABS: Hematocrit 45.8 % (42.0-52.0); Hemoglobin 14.4 gm/dL (13.5-18.0); Mean Cell Volume 89.1 fl (78-100); Mean Corpuscular Hgb Conc 31.4 g/dl (32-36); Mean Platelet Volume 9.5 fl (6.0-9.5); Neutrophil # 4.8 K/mm3 (1.3-6.0); Neutrophil % 52.2 % (42-75.0); Platelet Count 316 K/mm3 (150-450); Red Blood Count 5.14 M/mm3 (4.7-6.0); White Blood Count 9.2 K/mm3 (4.0-10.5)
[2017-01-12 05:40] LABS: BUN/Creatinine Ratio 12.3 (9.0-21.6); Calcium * 9.8 mg/dL (7.9-10.9); Estimated Creat Clear 39.8; Potassium 4.2 mmol/L (3.4-4.6)
[2017-01-12 05:53] LABS: Anion Gap 5.6 mmol/L (6.8-13.8); Carbon Dioxide 41.6 mmol/L (24-32.6)
[2017-01-12] MEDS: BUDESONIDE 0.5 MG/2 ML VIAL.NEB IH SCH ×2 (06:01→18:26)
[2017-01-12] MEDS: IPRATROPIUM BROMIDE 0.5 MG/2.5 ML VIAL.NEB IH SCH ×3 (06:01→18:23)
[2017-01-12] MEDS: PANTOPRAZOLE SODIUM 20 MG TABLET.DR PO SCH (07:16)
[2017-01-12] MEDS: FUROSEMIDE 10 MG/ML VIAL IV SCH (09:09)
[2017-01-12] MEDS: ATENOLOL 50 MG TABLET PO SCH ×2 (09:10→20:55)
[2017-01-12] MEDS: APIXABAN 2.5 MG TABLET PO SCH (09:10)
[2017-01-12] MEDS: FINASTERIDE 5 MG TABLET PO SCH (09:10)
[2017-01-12] MEDS: Olodaterol Hcl [Striverdi Respimat] IH SCH ×2 (09:11→20:56)
[2017-01-12] MEDS: LEVOFLOXACIN/D5W 750 MG/150 ML BAG IV SCH (09:25)
--- NOTE | 2017-01-12 12:56 | PN ---
Subjective - Date and Time Seen Date: 01/12/17 Time: 07:30 Subjective Narrative: Less SOB. Less cough. Dry mouth. Objective - Review of Systems Generalized/Overall Review: Reports: Malaise EENTM: Reports: No Symptoms Reported Respiratory: Reports: Cough, Shortness of Breath Cardiac: Reports: No Symptoms Reported Abdominal: Reports: No Symptoms Reported Genitourinary Symptoms: Reports: No Symptoms Reported Musculoskeletal Complaints: Reports: No Symptoms Reported Neurological: Reports: No Symptoms Reported Skin: Reports: No Symptoms Reported Endocrine: Reports: No Symptoms Reported Misc: All systems neg except as marked - Vitals Vitals: Last Vital Signs Selected Entries 01/12/17 01/12/17 06:00 06:11 Temperature 36.6 C Temperature Temporal Artery Source Scan Pulse Rate 72 70 Respiratory 18 16 Rate Respiratory Normal Depth Blood Pressure 94/45 Blood Pressure Supine Position O2 Sat by Pulse 99 Oximetry Oxygen Delivery Nasal Cannula Nasal Cannula Method Oxygen Flow 2 2 Rate - Abnormal Lab Findings Abnormal Lab Findings: Abnormal Lab Results 01/12/17 01/12/17 Range/Units 05:26 05:26 MCHC 31.4 L (32-36) g/dl Immature Gran % (Auto) 1.30 H (0.001-0.429) % Immature Gran # (Auto) 0.12 H (0.000-0.0310) K/mm3 Monocytes % 15.8 H (0.0-9) % Monocytes # 1.5 H (0.0-1.0) k/mm3 Carbon Dioxide 41.6 H (24-32.6) mmol/L Anion Gap 5.6 L (6.8-13.8) mmol/L Est GFR (Non-Af Amer) 52 L D (60-130) mL/min - EKG/Xray Findings EKG read: Interp. by me - no a fib. in retrospect, I don't think there was a fib yesterday, either. - Exam Constitutional: Present: Alert, Oriented x3, Cooperative, Well developed, Well nourished, No distress ENT Exam: Present: normal ENT inspection, hearing grossly normal Neck: Present: normal inspection Respiratory: Present: lungs clear, normal breath sounds, no respiratory distress Cardiovascular/Chest: Present: regular rate, rhythm, no murmur Abdomen: Present: Normal bowel sounds, soft, nontender, nondistended, no rebound tenderness, no hepatospenomegaly, no masses Extremity: Present: normal inspection, no pedal edema Skin Exam: Present: normal color, warm/dry, no cyanosis Neurologic: Present: alert, oriented x 3 Appearance: Present: appropriate appearance, appropriate insight, neat, no memory impairment Eye contact: Present: cooperative, good eye contact, normal speech, avoids eye contact Thoughts: Present: normal thought pattern Assessment/Plan Plan Narrative: Decrease Lasix. Stop eliquis. Resume lovenox. Follow labs. Otherwise, same. - Problems/Diagnosis (1) O2 dependent Problem: Acute (2) Atrial fibrillation Problem: Resolved (3) CHF (congestive heart failure) Problem: Acute (4) Pneumonia Problem: Acute (5) Diastolic CHF, chronic Problem: Chronic (6) Hyperlipidemia Problem: Chronic Qualifiers: Hyperlipidemia type: unspecified Qualified Code(s): E78.5 - Hyperlipidemia , unspecified
[2017-01-12] MEDS: ENOXAPARIN SODIUM 40 MG/0.4 ML SYRG SC SCH (13:47)
--- NOTE | 2017-01-12 15:04 | ECHO ---
This report is available in the EMR
[2017-01-12] MEDS: TAMSULOSIN HCL 0.4 MG CAP.SR.24H PO SCH (19:12)
[2017-01-12] MEDS: diphenhydrAMINE HCL 50 MG CAPSULE PO SCH (20:55)
[2017-01-12] MEDS: SIMVASTATIN 40 MG TABLET PO SCH (20:55)
[2017-01-13 06:12] LABS: Hemoglobin 14.4 gm/dL (13.5-18.0); Mean Cell Volume 87.9 fl (78-100); Mean Corpuscular Hemoglobin 28.1 pg (27-31); Mean Platelet Volume 9.7 fl (6.0-9.5); Neutrophil # 6.3 K/mm3 (1.3-6.0); Neutrophil % 59.7 % (42-75.0); Platelet Count 316 K/mm3 (150-450); Red Blood Count 5.12 M/mm3 (4.7-6.0); White Blood Count 10.6 K/mm3 (4.0-10.5)
[2017-01-13] MEDS: IPRATROPIUM BROMIDE 0.5 MG/2.5 ML VIAL.NEB IH SCH ×3 (06:13→18:10)
[2017-01-13] MEDS: BUDESONIDE 0.5 MG/2 ML VIAL.NEB IH SCH ×2 (06:13→18:12)
[2017-01-13 06:25] LABS: Anion Gap 2.2 mmol/L (6.8-13.8); Calcium * 9.5 mg/dL (7.9-10.9); Carbon Dioxide 42.4 mmol/L (24-32.6); Estimated Creat Clear 43.3; Potassium 3.6 mmol/L (3.4-4.6)
[2017-01-13] MEDS: PANTOPRAZOLE SODIUM 20 MG TABLET.DR PO SCH (06:38)
[2017-01-13] MEDS: FINASTERIDE 5 MG TABLET PO SCH (10:05)
[2017-01-13] MEDS: ATENOLOL 50 MG TABLET PO SCH ×2 (10:05→20:32)
[2017-01-13] MEDS: FUROSEMIDE 10 MG/ML VIAL IV SCH (10:06)
[2017-01-13] MEDS: LEVOFLOXACIN/D5W 750 MG/150 ML BAG IV SCH (10:06)
[2017-01-13] MEDS: Olodaterol Hcl [Striverdi Respimat] IH SCH ×2 (10:08→20:28)
[2017-01-13] MEDS: ENOXAPARIN SODIUM 40 MG/0.4 ML SYRG SC SCH (14:59)
--- NOTE | 2017-01-13 15:12 | PN ---
Subjective - Date and Time Seen Date: 01/13/17 Time: 15:12 Subjective Narrative: Less SOB. Less cough. Dry mouth. Objective - Review of Systems Generalized/Overall Review: Reports: No Symptoms Reported EENTM: Reports: Other - dry mouth Respiratory: Reports: Cough, Shortness of Breath Cardiac: Reports: No Symptoms Reported Abdominal: Reports: No Symptoms Reported Genitourinary Symptoms: Reports: No Symptoms Reported Musculoskeletal Complaints: Reports: No Symptoms Reported Neurological: Reports: No Symptoms Reported Skin: Reports: No Symptoms Reported Endocrine: Reports: No Symptoms Reported Misc: All systems neg except as marked - Vitals Vitals: Last Vital Signs Selected Entries 01/13/17 14:11 Temperature 36.5 C Temperature Temporal Artery Source Scan Pulse Rate 73 Respiratory 20 Rate Blood Pressure 112/53 Blood Pressure Supine Position O2 Sat by Pulse 99 Oximetry Oxygen Delivery Nasal Cannula Method Oxygen Flow 2 Rate - Abnormal Lab Findings Abnormal Lab Findings: Abnormal Lab Results 01/13/17 01/13/17 Range/Units 05:45 05:45 WBC 10.6 H (4.0-10.5) K/mm3 MPV 9.7 H (6.0-9.5) fl Immature Gran % (Auto) 1.50 H (0.001-0.429) % Immature Gran # (Auto) 0.16 H (0.000-0.0310) K/mm3 Monocytes % 12.4 H (0.0-9) % Neutrophils # 6.3 H (1.3-6.0) K/mm3 Monocytes # 1.3 H (0.0-1.0) k/mm3 Carbon Dioxide 42.4 H (24-32.6) mmol/L Anion Gap 2.2 L (6.8-13.8) mmol/L Est GFR (Non-Af Amer) 57 L (60-130) mL/min - Exam Constitutional: Present: Alert, Oriented x3, Cooperative, Well developed, Well nourished, No distress ENT Exam: Present: normal ENT inspection, hearing grossly normal Neck: Present: normal inspection Respiratory: Present: lungs clear, no respiratory distress Cardiovascular/Chest: Present: regular rate, rhythm, no murmur Abdomen: Present: Normal bowel sounds, soft, nontender, nondistended, no rebound tenderness, no hepatospenomegaly, no masses Extremity: Present: normal inspection, no pedal edema Skin Exam: Present: normal color, warm/dry, no cyanosis Neurologic: Present: alert, oriented x 3 Appearance: Present: appropriate appearance, appropriate insight, neat, no memory impairment Eye contact: Present: cooperative, good eye contact, normal speech Thoughts: Present: normal thought pattern Assessment/Plan Plan Narrative: Labs in AM. Continue Treatment. Home in Two days. As outpt, sleep study, swallow study, immune study. - Problems/Diagnosis (1) O2 dependent Problem: Acute (2) Atrial fibrillation Problem: Resolved (3) CHF (congestive heart failure) Problem: Acute Qualifiers: Congestive heart failure type: diastolic Congestive heart failure chronicity: acute on chronic Qualified Code(s): I50.33 - Acute on chronic diastolic (congestive) heart failure (4) Pneumonia Problem: Acute (5) Diastolic CHF, chronic Problem: Chronic (6) Hyperlipidemia Problem: Chronic Qualifiers: Hyperlipidemia type: unspecified Qualified Code(s): E78.5 - Hyperlipidemia , unspecified (7) Pulmonary hypertension Problem: Chronic
[2017-01-13] MEDS: TAMSULOSIN HCL 0.4 MG CAP.SR.24H PO SCH (18:29)
[2017-01-13] MEDS: diphenhydrAMINE HCL 50 MG CAPSULE PO SCH (20:31)
[2017-01-13] MEDS: SIMVASTATIN 40 MG TABLET PO SCH (20:32)
[2017-01-14 05:30] LABS: Hematocrit 47.9 % (42.0-52.0); Hemoglobin 15.3 gm/dL (13.5-18.0); Mean Cell Volume 88.9 fl (78-100); Mean Corpuscular Hemoglobin 28.4 pg (27-31); Mean Corpuscular Hgb Conc 31.9 g/dl (32-36); Mean Platelet Volume 9.8 fl (6.0-9.5); Neutrophil # 7.5 K/mm3 (1.3-6.0); Neutrophil % 61.9 % (42-75.0); Platelet Count 309 K/mm3 (150-450); Red Blood Count 5.39 M/mm3 (4.7-6.0); Red Cell Distribution Width 14.2 % (11.5-14.0); White Blood Count 12.2 K/mm3 (4.0-10.5)
[2017-01-14 05:42] LABS: Anion Gap 3.1 mmol/L (6.8-13.8); BUN/Creatinine Ratio 17.6 (9.0-21.6); Calcium * 9.6 mg/dL (7.9-10.9); Carbon Dioxide 42.4 mmol/L (24-32.6); Potassium 3.5 mmol/L (3.4-4.6)
[2017-01-14] MEDS: IPRATROPIUM BROMIDE 0.5 MG/2.5 ML VIAL.NEB IH SCH ×3 (06:06→18:42)
[2017-01-14] MEDS: BUDESONIDE 0.5 MG/2 ML VIAL.NEB IH SCH ×2 (06:06→18:42)
[2017-01-14] MEDS: PANTOPRAZOLE SODIUM 20 MG TABLET.DR PO SCH (06:29)
[2017-01-14] MEDS: FINASTERIDE 5 MG TABLET PO SCH (09:26)
[2017-01-14] MEDS: Olodaterol Hcl [Striverdi Respimat] IH SCH ×2 (09:27→20:27)
[2017-01-14] MEDS: LEVOFLOXACIN/D5W 750 MG/150 ML BAG IV SCH (09:27)
[2017-01-14] MEDS ORDERED: FUROSEMIDE 10 MG/ML VIAL IV SCH (09:31)
[2017-01-14] MEDS: ATENOLOL 50 MG TABLET PO SCH ×2 (09:47→20:35)
[2017-01-14] MEDS: FUROSEMIDE 10 MG/ML VIAL IV SCH (10:09)
--- NOTE | 2017-01-14 11:01 | PN ---
Subjective - Date and Time Seen Date: 01/14/17 Time: 10:58 Subjective Narrative: Less SOB. Less cough. Dry mouth. Objective - Review of Systems Generalized/Overall Review: Reports: Malaise EENTM: Reports: Other - dry mouth Respiratory: Reports: Cough, Shortness of Breath Cardiac: Reports: No Symptoms Reported Abdominal: Reports: No Symptoms Reported Genitourinary Symptoms: Reports: No Symptoms Reported Musculoskeletal Complaints: Reports: No Symptoms Reported Neurological: Reports: No Symptoms Reported Skin: Reports: No Symptoms Reported Endocrine: Reports: No Symptoms Reported Misc: All systems neg except as marked - Vitals Vitals: Last Vital Signs Selected Entries 01/14/17 10:09 Temperature 36.3 C L Temperature Temporal Artery Source Scan Respiratory 18 Rate Respiratory Normal Depth Respiratory Normal Effort Non-Labored Respiratory Normal Pattern Blood Pressure 102/57 O2 Sat by Pulse 98 Oximetry Oxygen Delivery Nasal Cannula Method Oxygen Flow 2 Rate - Abnormal Lab Findings Abnormal Lab Findings: Abnormal Lab Results 01/14/17 01/14/17 Range/Units 05:10 05:10 WBC 12.2 H (4.0-10.5) K/mm3 MCHC 31.9 L (32-36) g/dl RDW 14.2 H (11.5-14.0) % MPV 9.8 H (6.0-9.5) fl Immature Gran % (Auto) 1.60 H (0.001-0.429) % Immature Gran # (Auto) 0.19 H (0.000-0.0310) K/mm3 Monocytes % 11.3 H (0.0-9) % Neutrophils # 7.5 H (1.3-6.0) K/mm3 Monocytes # 1.4 H (0.0-1.0) k/mm3 Carbon Dioxide 42.4 H (24-32.6) mmol/L Anion Gap 3.1 L (6.8-13.8) mmol/L Est GFR (Non-Af Amer) 55 L (60-130) mL/min - Exam Constitutional: Present: Alert, Oriented x3, Cooperative ENT Exam: Present: normal ENT inspection, hard of hearing Neck: Present: normal inspection Cardiovascular/Chest: Present: regular rate, rhythm, no edema Abdomen: Present: Normal bowel sounds, soft, nontender, nondistended, no rebound tenderness, no hepatospenomegaly, no masses Extremity: Present: normal inspection, no pedal edema Skin Exam: Present: normal color, warm/dry, no cyanosis Neurologic: Present: alert, oriented x 3 Appearance: Present: appropriate appearance, appropriate insight, neat, no memory impairment Eye contact: Present: cooperative, good eye contact, normal speech Thoughts: Present: normal thought pattern Assessment/Plan Plan Narrative: Same. home tomorrow. Tea with lemon juice and honey. oral lasix. - Problems/Diagnosis (1) O2 dependent Problem: Acute (2) Atrial fibrillation Problem: Resolved (3) CHF (congestive heart failure) Problem: Acute Qualifiers: Congestive heart failure type: diastolic Congestive heart failure chronicity: acute on chronic Qualified Code(s): I50.33 - Acute on chronic diastolic (congestive) heart failure (4) Pneumonia Problem: Acute (5) Diastolic CHF, chronic Problem: Chronic (6) Hyperlipidemia Problem: Chronic Qualifiers: Hyperlipidemia type: unspecified Qualified Code(s): E78.5 - Hyperlipidemia , unspecified (7) Pulmonary hypertension Problem: Chronic
[2017-01-14] MEDS: FUROSEMIDE 20 MG TABLET PO SCH (11:39)
[2017-01-14] MEDS: ENOXAPARIN SODIUM 40 MG/0.4 ML SYRG SC SCH (13:40)
[2017-01-14] MEDS: TAMSULOSIN HCL 0.4 MG CAP.SR.24H PO SCH (18:38)
[2017-01-14] MEDS: diphenhydrAMINE HCL 50 MG CAPSULE PO SCH (20:29)
[2017-01-14] MEDS: SIMVASTATIN 40 MG TABLET PO SCH (20:30)
[2017-01-15 05:46] LABS: Hematocrit 49.7 % (42.0-52.0); Hemoglobin 15.8 gm/dL (13.5-18.0); Mean Cell Volume 88.9 fl (78-100); Mean Corpuscular Hemoglobin 28.3 pg (27-31); Mean Corpuscular Hgb Conc 31.8 g/dl (32-36); Mean Platelet Volume 9.6 fl (6.0-9.5); Neutrophil # 7.4 K/mm3 (1.3-6.0); Neutrophil % 61.6 % (42-75.0); Platelet Count 307 K/mm3 (150-450); Red Blood Count 5.59 M/mm3 (4.7-6.0); Red Cell Distribution Width 14.4 % (11.5-14.0)
[2017-01-15 05:56] LABS: Anion Gap 4.6 mmol/L (6.8-13.8); BUN/Creatinine Ratio 16.8 (9.0-21.6); Carbon Dioxide 38.1 mmol/L (24-32.6); Estimated Creat Clear 48.6; Potassium 3.7 mmol/L (3.4-4.6)
[2017-01-15] MEDS: IPRATROPIUM BROMIDE 0.5 MG/2.5 ML VIAL.NEB IH SCH (06:04)
[2017-01-15] MEDS: BUDESONIDE 0.5 MG/2 ML VIAL.NEB IH SCH (06:04)
[2017-01-15 07:04] VITALS: BP 95/44
[2017-01-15] MEDS: PANTOPRAZOLE SODIUM 20 MG TABLET.DR PO SCH (07:21)
[2017-01-15] MEDS ORDERED: FUROSEMIDE 10 MG/ML VIAL IV SCH (09:00)
[2017-01-15] MEDS: LEVOFLOXACIN/D5W 750 MG/150 ML BAG IV SCH (09:25)
[2017-01-15] MEDS: ATENOLOL 50 MG TABLET PO SCH (09:29)
[2017-01-15] MEDS: FINASTERIDE 5 MG TABLET PO SCH (09:29)
[2017-01-15] MEDS: Olodaterol Hcl [Striverdi Respimat] IH SCH (09:29)
[2017-01-15] MEDS: FUROSEMIDE 20 MG TABLET PO SCH (10:37)
--- NOTE | 2017-01-15 10:58 | DS ---
(1) O2 dependent Problem: Chronic (2) Atrial fibrillation Problem: Ruled-out (3) CHF (congestive heart failure) Problem: Acute Qualifiers: Congestive heart failure type: diastolic Congestive heart failure chronicity: acute on chronic Qualified Code(s): I50.33 - Acute on chronic diastolic (congestive) heart failure (4) Pneumonia Problem: Acute (5) Diastolic CHF, chronic Problem: Chronic (6) Hyperlipidemia Problem: Chronic Qualifiers: Hyperlipidemia type: unspecified Qualified Code(s): E78.5 - Hyperlipidemia , unspecified (7) Pulmonary hypertension Problem: Chronic Description of Stay: Slow and steady improvement with change in antibiotics. Echo showed diastolic dysfunction, but also pulmonary hypertension. Procedures Performed: none Discharge Disposition: Home self care Disposition: Home self-care Condition: Good Discharge Diet: Low salt Problem Oriented Discharge Instructions to Patient/Family: Community-Acquired Pneumonia, Adult, [id number], Heart Failure, [id number], Pulmonary Hypertension Additional Patient Instructions (free text): TCM appt please at discharge. Appt. Dr. Cagle, 2 weeks. Appt sleep lab, pulmonary hypertension.........has SHANICE? Appt for video swallow, recurrent pneumonia, do with speech therapy..........aspirates? Appt of [place], immunology..........recurrent pneumonia..............immune impaired? also has podiatry and eye appt. Co-ordinate all appt times. Prescriptions (Any new or edited meds): Levofloxacin [Levaquin] 750 mg PO DAILY #10 tab Complete Home Medications List: Complete Home Medication List: Furosemide [Lasix] 20 mg PO DAILY 07/13/14 Omeprazole [Prilosec] 40 mg PO DAILY 07/13/14 Simvastatin [Zocor] 40 mg PO HS 07/13/14 Fluticasone Propionate [Flovent Hfa] 1 inh IH BID 10/07/14 Ipratropium [place] [Atrovent Hfa] 2 puff IH TID 10/07/14 Acetaminophen [Tylenol] 650 mg PO QID PRN #0 tablet 01/18/15 Atenolol [Tenormin] 50 mg PO BID 07/04/15 Olodaterol HCl [Striverdi Respimat] 2 puff IH DAILY 10/15/16 Albuterol Sulfate [Albuterol Sulfate 2.5 MG/3 ML] 2.5 mg IH Q4H PRN 11/10/16 Finasteride [Proscar] 5 mg PO DAILY 11/10/16 Tamsulosin HCl [Flomax] 0.8 mg PO DAILY@1800 11/10/16 Naproxen Sodium [Aleve] 220 mg PO BID 12/08/16 diphenhydrAMINE HCL [Benadryl] 50 mg PO HS 01/11/17 Levofloxacin [Levaquin] 750 mg PO DAILY #10 tab 01/15/17
== END 2017-01-15 13:53 | disposition home or self-care (01) | DRG 291 ==
LOC: MS 10:01
PROVIDERS: ADMIT Allergy & Immunology; ATTEND Allergy & Immunology
PROC: B246ZZZ Ultrasonography of Right and Left Heart (ICD-10-PCS; principal; 2017-01-11)
DX: I50.33 Acute on chronic diastolic (congestive) heart failure (principal); J18.9 Pneumonia, unspecified organism; J44.0 Chronic obstructive pulmonary disease with (acute) lower respiratory infection; J45.909 Unspecified asthma, uncomplicated; I27.2 Other secondary pulmonary hypertension; I10 Essential (primary) hypertension; E78.5 Hyperlipidemia, unspecified; Z87.01 Personal history of pneumonia (recurrent); Z87.891 Personal history of nicotine dependence; Z99.81 Dependence on supplemental oxygen